=== PATIENT | female | born 1950 | race Caucasian/White ===

== ENCOUNTER 2019-07-10 00:41 | Observation (INO) | payer MEDICARE, OTHER ==
[~2019-07-10] VITALS: Ht 173 cm; Wt 110.5 kg
[2019-07-10] VITALS (11 sets, daily range): BP systolic 129–162; BP diastolic 72–111
[2019-07-10 00:57] LABS: HEMATOCRIT 41 % (35-52); HEMOGLOBIN 14.3 G/DL (11.5-16.0); MEAN CORPUSCULAR HEMOGLOBIN 31 PG (25-34); MEAN CORPUSCULAR VOLUME 88 FL (80-99); WHITE BLOOD COUNT 8.6 10^3/uL (4.3-11.0)
[2019-07-10 00:58] LABS: BASOPHILS % (AUTO) 0 % (0-10); EOSINOPHILS # (AUTO) 0.1 10^3/uL (0.0-0.3); EOSINOPHILS % (AUTO) 1 % (0-10); LYMPHOCYTES # (AUTO) 2.8 X 10^3 (1.0-4.0); LYMPHOCYTES % (AUTO) 33 % (12-44); MEAN CORPUSCULAR HGB CONC 35 G/DL (32-36); MEAN PLATELET VOLUME 9.8 FL (7.4-10.4); MONOCYTES # (AUTO) 0.6 X 10^3 (0.0-1.0); MONOCYTES % (AUTO) 6 % (0-12); NEUTROPHILS # (AUTO) 5.1 X 10^3 (1.8-7.8); NEUTROPHILS % (AUTO) 59 % (42-75); PLATELET COUNT 275 10^3/uL (130-400); RED CELL DISTRIBUTION WIDTH 12.8 % (10.0-14.5)
[2019-07-10] MEDS ORDERED: LEVO150T6 (01:09)
[2019-07-10] MEDS ORDERED: ALPR0.254 (01:09)
[2019-07-10] MEDS ORDERED: PRAV40TA2 (01:09)
[2019-07-10] MEDS ORDERED: OMEP20CA13 (01:09)
[2019-07-10] MEDS ORDERED: NABU500T (01:09)
[2019-07-10] MEDS ORDERED: HYDR-3812 (01:09)
[2019-07-10] MEDS ORDERED: METF-397 (01:09)
[2019-07-10] MEDS ORDERED: FLUO20CA25 (01:09)
[2019-07-10] MEDS ORDERED: LISI-552 (01:09)
[2019-07-10] MEDS ORDERED: HYDR12.5 (01:09)
[2019-07-10] MEDS ORDERED: METO-395 (01:09)
[2019-07-10] MEDS ORDERED: NITROGLYCERIN 0.4 MG SL TABS BTL 25'S SL PRN ×2 (01:15→04:00)
[2019-07-10 01:17] LABS: ALANINE AMINOTRANSFERASE 38 U/L (0-55); ALBUMIN 4.4 GM/DL (3.2-4.5); ALKALINE PHOSPHATASE 109 U/L (40-136); BILIRUBIN,TOTAL 0.4 MG/DL (0.1-1.0); BUN/CREATININE RATIO 22; CALCIUM 8.9 MG/DL (8.5-10.1); CARBON DIOXIDE 24 MMOL/L (21-32); CHLORIDE 98 MMOL/L (98-107); CREATININE SERUM 0.92 MG/DL (0.60-1.30); GFR ESTIMATED > 60; GLUCOSE 192 MG/DL (70-105); POTASSIUM 3.7 MMOL/L (3.6-5.0); SODIUM 138 MMOL/L (135-145); TOTAL PROTEIN 7.4 GM/DL (6.4-8.2)
--- NOTE | 2019-07-10 01:36 | ED Chest Pain ---
General Chief Complaint: Chest Pain Stated Complaint: CHEST PAIN Nursing Triage Note: pt states intermittent chest pain for 2 weeks, occasionally worse at times. substernal no radiation Nursing Sepsis Screen: No Definite Risk Source: patient, family Exam Limitations: no limitations History of Present Illness Date Seen by Provider: Jul 10, 2019 Time Seen by Provider: 01:00 Initial Comments Patient is a 69-year-old female with history of hypertension, dyslipidemia and diabetes who presents with written right-sided chest pain 2 weeks. Chest pain awoke patient from sleep 3 hours prior to ED arrival. Pain was initially described as sharp then has continued to burn and now radiates to right shoulder. Pain is rated as moderate. It does not reproduce with palpation, arm or neck movement. Patient denies nausea vomiting sweats. No abdominal pain. Previous cholecystectomy. Patient is a nonsmoker. 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 NTG SL BAND EDGER: No Associated Symptoms: denies symptoms Allergies and Home Medications Allergies Coded Allergies: No Allergy Information Available (Unverified , 07/10/19) pt states she is allergic to 1 medication but does not know the name Patient Home Medication List Home Medication List Reviewed: Yes Review of Systems Review of Systems Constitutional: see HPI EENTM: See HPI Respiratory: See HPI Cardiovascular: See HPI Gastrointestinal: See HPI Genitourinary: See HPI Musculoskeletal: see HPI Skin: see HPI Psychiatric/Neurological: See HPI Endocrine: See HPI Hematologic/Lymphatic: See HPI Past Vbfkhgf-Eeyjvn-Xxptid Hx Past Med/Social Hx: Reviewed Nursing Past Med/Soc Hx Patient Social History Alcohol Use: Denies Use Recreational Drug Use: No Smoking Status: Never a Smoker 2nd Hand Smoke Exposure: No Recent Foreign Travel: No Contact w/Someone Who Travel: No Recent Infectious Disease Expo: No Recent Hopitalizations: No Physical Abuse: No Sexual Abuse: No Mistreated: No Fear: No Seasonal Allergies Seasonal Allergies: No Past Medical History Surgeries: Yes Bladder Surgery, Gallbladder, Thyroidectomy, Tonsillectomy Respiratory: No Cardiac: Yes Hypertension Neurological: No Genitourinary: Yes Bladder Infection Gastrointestinal: No Musculoskeletal: No Endocrine: Yes Hypothyroidsim, Diabetes, Non-Insulin dep HEENT: No Cancer: Yes Thyroid Psychosocial: Yes Anxiety, Depression Integumentary: No Blood Disorders: No Adverse Reaction/Blood Tranf: No Physical Exam Vital Signs Vital Signs - First Documented 07/10/19 07/10/19 00:52 01:02 Temp 35.7 Pulse 78 Resp 17 B/P (MAP) 178/83 (114) Pulse Ox 95 O2 Delivery Room Air Capillary Refill : Less Than 3 Seconds Height, Weight, BMI Height: '" Weight: lbs. oz. kg; 37.00 BMI Method: General Appearance: No Apparent Distress, WD/WN HEENT: PERRL/EOMI, Normal ENT Inspection Neck: Non Tender, Supple Respiratory: Chest Non Tender, Lungs Clear, Normal Breath Sounds Cardiovascular: Regular Rate, Rhythm Gastrointestinal: Normal Bowel Sounds, Non Tender, Soft Extremity: Normal Capillary Refill, Normal Inspection, No Calf Tenderness Skin: Normal Color, Warm/Dry Focused Exam Sepsis Stage: Ruled Out Progress/Results/Core Measures Results/Orders Lab Results Laboratory Tests Test 07/10/19 00:50 Range/Units White Blood Count 8.6 4.3-11.0 10^3/uL Red Blood Count 4.67 4.35-5.85 10^6/uL Hemoglobin 14.3 11.5-16.0 G/DL Hematocrit 41 35-52 % Mean Corpuscular Volume 88 80-99 FL Mean Corpuscular Hemoglobin 31 25-34 PG Mean Corpuscular Hemoglobin Concent 35 32-36 G/DL Red Cell Distribution Width 12.8 10.0-14.5 % Platelet Count 275 130-400 10^3/uL Mean Platelet Volume 9.8 7.4-10.4 FL Neutrophils (%) (Auto) 59 42-75 % Lymphocytes (%) (Auto) 33 12-44 % Monocytes (%) (Auto) 6 0-12 % Eosinophils (%) (Auto) 1 0-10 % Basophils (%) (Auto) 0 0-10 % Neutrophils # (Auto) 5.1 1.8-7.8 X 10^3 Lymphocytes # (Auto) 2.8 1.0-4.0 X 10^3 Monocytes # (Auto) 0.6 0.0-1.0 X 10^3 Eosinophils # (Auto) 0.1 0.0-0.3 10^3/uL Basophils # (Auto) 0.0 0.0-0.1 10^3/uL Sodium Level 138 135-145 MMOL/L Potassium Level 3.7 3.6-5.0 MMOL/L Chloride Level 98 98-107 MMOL/L Carbon Dioxide Level 24 21-32 MMOL/L Anion Gap 16 H 5-14 MMOL/L Blood Urea Nitrogen 20 H 7-18 MG/DL Creatinine 0.92 0.60-1.30 MG/DL Estimat Glomerular Filtration Rate > 60 BUN/Creatinine Ratio 22 Glucose Level 192 H 70-105 MG/DL Calcium Level 8.9 8.5-10.1 MG/DL Corrected Calcium 8.6 8.5-10.1 MG/DL Total Bilirubin 0.4 0.1-1.0 MG/DL Aspartate Amino Transf (AST/SGOT) 28 5-34 U/L Alanine Aminotransferase (ALT/SGPT) 38 0-55 U/L Alkaline Phosphatase 109 40-136 U/L Troponin I < 0.30 <0.30 NG/ML Total Protein 7.4 6.4-8.2 GM/DL Albumin 4.4 3.2-4.5 GM/DL My Orders Orders - JEWEL HUNTER DO Cbc With Automated Diff (07/10/19 00:47) Comprehensive Metabolic Panel (07/10/19 00:47) Troponin I Fs (07/10/19 00:47) Chest 1 View Ap/Pa Only (07/10/19 00:47) Ekg Tracing (07/10/19 00:47) Nitroglycerin 0.4 Mg Btl 25's (Nitrostat (07/10/19 01:15) Medications Given in ED Current Medications Medications Dose Ordered Sig/Delfina Route Start Time Stop Time Status Last Admin Dose Admin Nitroglycerin 1 TAB Q 5 MIN X 3 NEEDED PRN SL 07/10/19 01:15 07/10/19 01:18 0.4 MG Vital Signs/I&O 07/10/19 07/10/19 00:52 01:02 Temp 35.7 Pulse 78 Resp 17 B/P (MAP) 178/83 (114) Pulse Ox 95 O2 Delivery Room Air Blood Pressure Mean: 114 Departure Communication (Admissions) Time/Spoke to Consulting Phy: 01:39 Dr. Cam EKG, lab, EKG and imaging reviewed. No acute findings. Chest pain resolved with touch posterior and 1. 325 mg of aspirin prior to ED arrival. Patient vital signs remained stable. Patient accepted to [facility] by Dr. Cam. Impression Primary Impression: Chest pain Disposition: ADMITTED INPATIENT Condition: Stable JEWEL HUNTER DO Jul 10, 2019 01:36
[2019-07-10 06:32] LABS: BASOPHILS % (AUTO) 0 % (0-10); EOSINOPHILS # (AUTO) 0.1 10^3/uL (0.0-0.3); EOSINOPHILS % (AUTO) 1 % (0-10); HEMATOCRIT 39 % (35-52); HEMOGLOBIN 13.2 G/DL (11.5-16.0); LYMPHOCYTES # (AUTO) 1.8 X 10^3 (1.0-4.0); LYMPHOCYTES % (AUTO) 25 % (12-44); MEAN CORPUSCULAR HEMOGLOBIN 30 PG (25-34); MEAN CORPUSCULAR HGB CONC 34 G/DL (32-36); MEAN CORPUSCULAR VOLUME 87 FL (80-99); MONOCYTES # (AUTO) 0.4 X 10^3 (0.0-1.0); MONOCYTES % (AUTO) 6 % (0-12); NEUTROPHILS # (AUTO) 4.6 X 10^3 (1.8-7.8); NEUTROPHILS % (AUTO) 68 % (42-75); PLATELET COUNT 240 10^3/uL (130-400); RED CELL DISTRIBUTION WIDTH 13.3 % (10.0-14.5); WHITE BLOOD COUNT 6.9 10^3/uL (4.3-11.0)
--- NOTE | 2019-07-10 07:33 | NUR ---
Dr Moser notified of consult by this RN.
--- NOTE | 2019-07-10 07:48 | NUR ---
PT TO ROOM 4020 VIA WC ACCOMPANIED BY STAFF. PERSONAL BELONGINGS WITH PT. THIS RN WILL ASSUME PT CARE AT THIS TIME.
[2019-07-10] MEDS: FAMOTIDINE 20MG/2ML IV (PEPCID) IVP SCH ×2 (08:05→21:41)
--- NOTE | 2019-07-10 08:08 | Diagnostic Imaging Report ---
EXAMINATION: Chest 1 view HISTORY: Chest pain FINDINGS: No comparison available. Heart size is accentuated by portable technique and is likely normal. There are surgical clips in the right axilla. No pleural effusion or pneumothorax. No edema or pneumonia. IMPRESSION: 1. Clear lungs. Dictated by: Dictated on workstation # [id number]
[2019-07-10] MEDS: ONDANSETRON 4 MG/2 ML (SDV) Z0FRAN IV PRN ×2 (09:13→16:47)
[2019-07-10] MEDS ORDERED: ALPRAZolam 0.25 MG (XANAX) TAB PO PRN (11:15)
[2019-07-10 11:52] LABS: BASOPHILS % (AUTO) 0 % (0-10); EOSINOPHILS # (AUTO) 0.1 10^3/uL (0.0-0.3); EOSINOPHILS % (AUTO) 1 % (0-10); HEMATOCRIT 37 % (35-52); HEMOGLOBIN 13.3 G/DL (11.5-16.0); LYMPHOCYTES # (AUTO) 1.6 X 10^3 (1.0-4.0); LYMPHOCYTES % (AUTO) 25 % (12-44); MEAN CORPUSCULAR HEMOGLOBIN 31 PG (25-34); MEAN CORPUSCULAR HGB CONC 36 G/DL (32-36); MEAN CORPUSCULAR VOLUME 87 FL (80-99); MEAN PLATELET VOLUME 9.7 FL (7.4-10.4); MONOCYTES # (AUTO) 0.4 X 10^3 (0.0-1.0); MONOCYTES % (AUTO) 6 % (0-12); NEUTROPHILS # (AUTO) 4.3 X 10^3 (1.8-7.8); NEUTROPHILS % (AUTO) 68 % (42-75); PLATELET COUNT 224 10^3/uL (130-400); RED CELL DISTRIBUTION WIDTH 13.2 % (10.0-14.5); WHITE BLOOD COUNT 6.3 10^3/uL (4.3-11.0)
[2019-07-10 12:08] LABS: ALANINE AMINOTRANSFERASE 39 U/L (0-55); ALKALINE PHOSPHATASE 85 U/L (40-136); BILIRUBIN,TOTAL 0.7 MG/DL (0.1-1.0); BUN/CREATININE RATIO 19; CALCIUM 8.7 MG/DL (8.5-10.1); CARBON DIOXIDE 26 MMOL/L (21-32); CHLORIDE 101 MMOL/L (98-107); CREATININE SERUM 0.96 MG/DL (0.60-1.30); GFR ESTIMATED 58; GLUCOSE 158 MG/DL (70-105); MAGNESIUM 1.4 MG/DL (1.6-2.4); SODIUM 138 MMOL/L (135-145); TOTAL PROTEIN 6.8 GM/DL (6.4-8.2)
--- NOTE | 2019-07-10 12:59 | History & Physical-Hospitalist ---
History of Present Illness HPI/Chief Complaint This is a 69-year-old white female who presents to the [facility] emergency room with complaints of right-sided chest pain for the last 2 weeks. She notes that the chest pain is not exertional nor she had more shortness of breath. She has not done anything to bring it on. It's not been associated with diaphoresis or nausea. She does note that eating seems to make it worse. Source: patient Exam Limitations: no limitations Date Seen 07/10/19 Time Seen by a Provider: 12:00 Attending Physician Sierra Cam MD PCP Mireya Talley MD Referring Physician Date of Admission Jul 10, 2019 at 01:49 Home Medications & Allergies Home Medications Reviewed patient Home Medication Reconciliation performed by pharmacy medication reconciliations classroom technology technician and/or nursing. Patients Allergies have been reviewed. 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) Alcohol Use: Denies Use Recreational Drug Use: No Smoking Status: Never a Smoker 2nd Hand Smoke Exposure: No Recent Foreign Travel: No Contact w/other who traveled: No Recent Hopitalizations: No Recent Infectious Disease Expo: No Seasonal Allergies Seasonal Allergies: No Past Medical History Surgeries: Bladder Surgery, Gallbladder, Thyroidectomy, Tonsillectomy Cardiac: Hypertension Genitourinary: Bladder Infection Endocrine: Hypothyroidsim, Diabetes, Non-Insulin dep Cancer: Thyroid Psychosocial: Anxiety, Depression History of Blood Disorders: No Adverse Reaction to Blood Sullivan: No Family History DVT/PE Review of Systems Constitutional: see HPI EENTM: no symptoms reported Respiratory: no symptoms reported Cardiovascular: chest pain (right-sided) Gastrointestinal: no symptoms reported Genitourinary: no symptoms reported Musculoskeletal: no symptoms reported Skin: no symptoms reported Psychiatric/Neurological: No Symptoms Reported Physical Exam Physical Exam Vital Signs Vital Signs - First Documented 07/10/19 07/10/19 00:52 01:02 Temp 35.7 Pulse 78 Resp 17 B/P (MAP) 178/83 (114) Pulse Ox 95 O2 Delivery Room Air Capillary Refill : Less Than 3 Seconds Height, Weight, BMI Height: '" Weight: lbs. oz. kg; 37.22 BMI Method: General Appearance: No Apparent Distress, WD/WN HEENT: Normal ENT Inspection Neck: Full Range of Motion, Non Tender, Supple Respiratory: Chest Non Tender, Lungs Clear, Normal Breath Sounds, No Accessory Muscle Use, No Respiratory Distress Cardiovascular: Regular Rate, Rhythm, No Edema, No Gallop, No JVD, No Murmur, Normal Peripheral Pulses Gastrointestinal: Normal Bowel Sounds, No Organomegaly, No Pulsatile Mass, Non Tender, Soft Rectal: Deferred Back: Normal Inspection Extremity: Normal Capillary Refill, Normal Inspection, Normal Range of Motion, Non Tender, No Calf Tenderness, No Pedal Edema Neurologic/Psychiatric: Alert, Oriented x3, No Motor/Sensory Deficits, Normal Mood/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 Assessment/Plan Admission Diagnosis Chest pain atypical but with multiple risk factors including diabetes hypertension and hyperlipidemia and family history Type II diabetes on oral medications History of hypertension History of dyslipidemia Hypothyroidism Plan to admit consult cardiology for further risk stratification and evaluation Admission Status: Observation Clinical Quality Measures AMI/AHF: ASA po Prior to arrival: Yes DVT/VTE Risk/Contraindication: Risk Factor Score Per Nursin RFS Level Per Nursing on Admit: 3=High Copy Copies To 1: [facility]SIERRA STEELE MD Jul 10, 2019 12:59
[2019-07-10] MEDS: MAGNESIUM 1 GM/100 ML IVPB 100 ML IV SCH (13:10)
--- NOTE | 2019-07-10 15:27 | Consultation-Cardiology ---
HPI-Cardiology Cardiology Consultation: Date of Consultation 07/10/19 Time Seen by a Provider: 14:40 Date of Admission Attending Physician Sierra Cam MD Admitting Physician Mireya Talley MD Consulting Physician KEVIN WONG MD, MA, FACP, FACC, FSCAI, CCDS Physician requesting consult: Dr Cam HPI: Chief Complaint: CC: Chest discomfort HPI 69 yo woman with 2 weeks of chest discomfort: R upper chest, sometimes radiating to L upper chest, waxing and waning, but not resolving completely. It is sharp, moderate in intensity, w/o aggravating or relieving factors, unassociated with other symptoms. Has chronic, mild to mod exertional shortness of breath. Denies fever or chills. Has chronic, mild, intermittent leg swelling, unchanged in the recent past. Denies palp or syncope Review of Systems-Cardiology Review of Systems Constitutional: malaise, tiredness; No weight loss, No weight gain Eyes: No vision change Ears/Nose/Throat: No ear discharge, No nasal drainage, No recent hearing loss Respiratory: As described under HPI Cardiovascular: As described under HPI Gastrointestinal: No diarrhea, No nausea, No vomiting Genitourinary: No dysuria, No hematuria, No urine frequency changes Musculoskeletal: back pain (chronic); No joint pain Skin: No rash Psychiatric/Neurological: No seizure, No focal weakness, No syncope Hematologic: No bleeding abnormalities MZB-Tnadia-Chvsjd Hx Patient Social History Marrital Status: 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 Family Medical History Family Medical History: Does not report fam h/o early CAD or SCD Allergies and Home Medications Allergies Coded Allergies: No Allergy Information Available (Unverified , 07/10/19) pt states she is allergic to 1 medication but does not know the name Patient Home Medication List Home Medication List Reviewed: Yes Physical Exam-Cardiology Physical Exam Vital Signs/I&O 07/10/19 07/10/19 07/10/19 07/10/19 03:29 03:30 03:45 04:00 Pulse 70 68 73 74 Resp 12 20 22 B/P (MAP) 135/72 (93) 146/84 (104) 146/78 (100) Pulse Ox 94 95 96 O2 Delivery Room Air Room Air Room Air 07/10/19 07/10/19 07/10/19 07/10/19 04:00 04:30 07:00 08:00 Temp 37.0 Pulse 72 78 75 Resp 20 18 B/P (MAP) 141/73 (95) 152/85 (107) Pulse Ox 94 93 O2 Delivery Room Air Room Air Room Air 07/10/19 07/10/19 07/10/19 07/10/19 08:09 08:58 12:00 12:00 Temp 36.9 Pulse 82 Resp 18 B/P (MAP) 152/82 (105) Pulse Ox 91 O2 Delivery Room Air Room Air Room Air Room Air 07/10/19 07/10/19 13:00 15:18 Pulse 87 O2 Delivery Room Air Capillary Refill : Less Than 3 Seconds Constitutional: AAO x 3, well-developed, well-nourished HEENT: EOMI, hearing is well preserved Neck: carotid pulses are 2 + bilaterally, with good upstrokes Respiratory: No accessory muscle use; other (Fair to good bilat air entry, a few coarse basal crackles) Cardiovascular: regular rate-rhythm, S1 and S2, systolic murmur (soft JENNIFER at card base) Gastrointestinal: No tender; soft; No guarding, No rebound; audible bowel sounds Extremities: swelling (mild, bilateral leg swelling); No clubbing, No cyanosis Neurologic/Psychiatric: oriented x 3, other (she moves all her limbs equally) Skin: No rash, No ulcerations Data Review Labs Laboratory Tests 07/10/19 00:50: White Blood Count 8.6, Red Blood Count 4.67, Hemoglobin 14.3, Hematocrit 41, Mean Corpuscular Volume 88, Mean Corpuscular Hemoglobin 31, Mean Corpuscular Hemoglobin Concent 35, Red Cell Distribution Width 12.8, Platelet Count 275, Mean Platelet Volume 9.8, Neutrophils (%) (Auto) 59, Lymphocytes (%) (Auto) 33, Monocytes (%) (Auto) 6, Eosinophils (%) (Auto) 1, Basophils (%) (Auto) 0, Neutrophils # (Auto) 5.1, Lymphocytes # (Auto) 2.8, Monocytes # (Auto) 0.6, Eosinophils # (Auto) 0.1, Basophils # (Auto) 0.0, Sodium Level 138, Potassium Level 3.7, Chloride Level 98, Carbon Dioxide Level 24, Anion Gap 16H, Blood Urea Nitrogen 20H, Creatinine 0.92, Estimat Glomerular Filtration Rate > 60, BUN/Creatinine Ratio 22, Glucose Level 192H, Calcium Level 8.9, Corrected Calcium 8.6, Total Bilirubin 0.4, Aspartate Amino Transf (AST/SGOT) 28, Alanine Aminotransferase (ALT/SGPT) 38, Alkaline Phosphatase 109, Troponin I < 0.30, Total Protein 7.4, Albumin 4.4 07/10/19 05:45: White Blood Count 6.9, Red Blood Count 4.44, Hemoglobin 13.2, Hematocrit 39, Mean Corpuscular Volume 87, Mean Corpuscular Hemoglobin 30, Mean Corpuscular Hemoglobin Concent 34, Red Cell Distribution Width 13.3, Platelet Count 240, Mean Platelet Volume 10.0, Neutrophils (%) (Auto) 68, Lymphocytes (%) (Auto) 25, Monocytes (%) (Auto) 6, Eosinophils (%) (Auto) 1, Basophils (%) (Auto) 0, Neutrophils # (Auto) 4.6, Lymphocytes # (Auto) 1.8, Monocytes # (Auto) 0.4, Eosinophils # (Auto) 0.1, Basophils # (Auto) 0.0, Troponin I < 0.028 07/10/19 11:40: White Blood Count 6.3, Red Blood Count 4.28L, Hemoglobin 13.3, Hematocrit 37, Mean Corpuscular Volume 87, Mean Corpuscular Hemoglobin 31, Mean Corpuscular Hemoglobin Concent 36, Red Cell Distribution Width 13.2, Platelet Count 224, Mean Platelet Volume 9.7, Neutrophils (%) (Auto) 68, Lymphocytes (%) (Auto) 25, Monocytes (%) (Auto) 6, Eosinophils (%) (Auto) 1, Basophils (%) (Auto) 0, Neutrophils # (Auto) 4.3, Lymphocytes # (Auto) 1.6, Monocytes # (Auto) 0.4, Eosinophils # (Auto) 0.1, Basophils # (Auto) 0.0, Sodium Level 138, Potassium Level 4.0, Chloride Level 101, Carbon Dioxide Level 26, Anion Gap 11, Blood Urea Nitrogen 18, Creatinine 0.96, Estimat Glomerular Filtration Rate 58, BUN/Creatinine Ratio 19, Glucose Level 158H, Calcium Level 8.7, Corrected Calcium 8.7, Total Bilirubin 0.7, Aspartate Amino Transf (AST/SGOT) 25, Alanine Aminotransferase (ALT/SGPT) 39, Alkaline Phosphatase 85, Troponin I < 0.028, Total Protein 6.8, Albumin 4.0, D-Dimer 0.38, Magnesium Level 1.4L, B-Type Na triuretic Peptide 70.4, Thyroid Stimulating Hormone (TSH) 2.01 Laboratory Tests 07/10/19 00:50 07/10/19 05:45 07/10/19 11:40 A/P-Cardiology Assessment/Admission Diagnosis Chest discomfort of undetermined etiology DM II Hypertension Obesity with BMI approx 37 H/o R breast CA treated with lumpectomy, chemo, and radiation in or around 2003 (according to the patient) Discussion and Recomendations * W/u for cardiac-related chest discomfort: echo and MPI * If cardiac w/u negative, consider non-cardiac causes, including recurrent breast CA. This is to be pursued by the Med Svce * Replenish Mg * Monitor labs Clinical Quality Measures AMI/AHF: ASA po Prior to arrival: Yes DVT/VTE Risk/Contraindication: Risk Factor Score Per Nursin RFS Level Per Nursing on Admit: 3=High KEVIN WONG MD FACP [facility] CCDS Jul 10, 2019 15:27
[2019-07-10] MEDS ORDERED: REGADENOSON 0.4 MG/5 ML SYR (LEXISCAN) IV ONE (15:45)
--- NOTE | 2019-07-10 18:03 | NUR ---
ICU NOTIFIED THIS RN THAT PT HAD POSSIBLE EPISODES OF A FLUTTER. DR WONG NOTIFIED NEW ORDERS RECEIVED.
[2019-07-10] MEDS ORDERED: ENOXAPARIN 100 MG/1 ML (LOVENOX) SYR SC SCH (18:15)
[2019-07-11 00:32] VITALS: BP 158/79
[2019-07-11 04:39] VITALS: BP 150/91
[2019-07-11 08:00] VITALS: BP 136/82
[2019-07-11] MEDS ORDERED: ENOXAPARIN 100 MG/1 ML (LOVENOX) SYR SC SCH (10:00)
[2019-07-11] MEDS ORDERED: CATHETER FLUSH 10 ML SYR IV PRN (11:15)
--- NOTE | 2019-07-11 11:23 | Discharge Summary ---
TABATHA JASSO [facility] 07/11/19 1123: Diagnosis/Chief Complaint Date of Admission Jul 10, 2019 at 01:49 Date of Discharge Discharge Date: Jul 11, 2019 Admission Diagnosis Chest pain atypical but with multiple risk factors including diabetes hypertension and hyperlipidemia and family history Type II diabetes on oral medications History of hypertension History of dyslipidemia Hypothyroidism Plan to admit consult cardiology for further risk stratification and evaluation Primary Care Mireya Talley MD Discharge Summary Discharge Physical Exam Allergies: Coded Allergies: No Allergy Information Available (Unverified , 07/10/19) pt states she is allergic to 1 medication but does not know the name Vitals & I&Os Vital Signs Date Time Temp Pulse Resp B/P (MAP) Pulse Ox O2 Delivery O2 Flow Rate FiO2 07/11/19 08:00 35.7 73 16 136/82 (100) 95 Room Air General Appearance: No Apparent Distress, WD/WN Respiratory: Chest Non Tender, Lungs Clear, Normal Breath Sounds, No Accessory Muscle Use, No Respiratory Distress Cardiovascular: Regular Rate, Rhythm, No Edema, No Gallop, No Murmur, Normal Peripheral Pulses Extremity: Normal Inspection, Normal Range of Motion, Non Tender, No Calf Tenderness Skin: Normal Color, Warm/Dry Neurologic/Psychiatric: Alert, Oriented x3, No Motor/Sensory Deficits, Normal Mood/Affect Hospital Course Pt arrived in [place] ER with complaints of right sided chest pain that had been happening for a couple weeks. It is described as sharp that does burnign burning and radiates to right shoulder. A cardiac work up was initiated and found to be normal. The pt was admitted to [facility] for observation, and she was given magnesium sulfate due to low Mg levels. The patient reported feeling better after the medications that were given and reported no remaining pain. Pt is to be discharged to home with instructions to follow up with Dr. Talley this week. Labs (last 24 hrs) Laboratory Tests 07/10/19 11:40: White Blood Count 6.3, Red Blood Count 4.28L, Hemoglobin 13.3, Hematocrit 37, Mean Corpuscular Volume 87, Mean Corpuscular Hemoglobin 31, Mean Corpuscular Hemoglobin Concent 36, Red Cell Distribution Width 13.2, Platelet Count 224, Mean Platelet Volume 9.7, Neutrophils (%) (Auto) 68, Lymphocytes (%) (Auto) 25, Monocytes (%) (Auto) 6, Eosinophils (%) (Auto) 1, Basophils (%) (Auto) 0, Neutrophils # (Auto) 4.3, Lymphocytes # (Auto) 1.6, Monocytes # (Auto) 0.4, Eosinophils # (Auto) 0.1, Basophils # (Auto) 0.0, D-Dimer 0.38, Sodium Level 138, Potassium Level 4.0, Chloride Level 101, Carbon Dioxide Level 26, Anion Gap 11, Blood Urea Nitrogen 18, Creatinine 0.96, Estimat Glomerular Filtration Rate 58, BUN/Creatinine Ratio 19, Glucose Level 158H, Calcium Level 8.7, Corrected Calcium 8.7, Magnesium Level 1.4L, Total Bilirubin 0.7, Aspartate Amino Transf (AST/SGOT) 25, Alanine Aminotransferase (ALT/SGPT) 39, Alkaline Phosphatase 85, Troponin I < 0.028, B-Type Natriuretic Peptide 70.4, Total Protein 6.8, Albumin 4.0, Thyroid Stimulating Hormone (TSH) 2.01 Patient resulted labs reviewed. Discharge Home Medications: Active Scripts Active Reported Metoprolol Succinate 100 Mg Tab.er.24h Alprazolam 0.25 Mg Tablet Lisinopril 20 Mg Tablet Metformin HCl 500 Mg Tablet Fluoxetine HCl 20 Mg Capsule Omeprazole 20 Mg Capsule.dr Hydrochlorothiazide 12.5 Mg Capsule Levothyroxine Sodium 150 Mcg Tablet Pravastatin Sodium 40 Mg Tablet Nabumetone 500 Mg Tablet Hydrocodone-Acetamin 5-325 mg (Hydrocodone/Acetaminophen) 1 Each Tablet Instructions to patient/family Please see electronic discharge instructions given to patient. Clinical Quality Measures AMI/AHF: ASA po Prior to arrival: Yes DVT/VTE Risk/Contraindication: Risk Factor Score Per Nursin RFS Level Per Nursing on Admit: 3=High ZOYA PINK DO 07/11/192027: Diagnosis/Chief Complaint Discharge Diagnosis (1) Chest pain Status: Acute Discharge Summary Discharge Physical Exam Allergies: Coded Allergies: No Allergy Information Available (Unverified , 07/10/19) pt states she is allergic to 1 medication but does not know the name General Appearance: No Apparent Distress, WD/WN Respiratory: Lungs Clear Cardiovascular: Regular Rate, Rhythm Neurologic/Psychiatric: Alert, Oriented x3, No Motor/Sensory Deficits, Normal Mood/Affect Hospital Course Was the Problem List Reviewed?: Yes Hospital Course: Pt doing well awaiting results of Lexiscan and echo. Appreciate cardiology consultation. Pt denies any chest pain since yesterday. at the bedside. This fall that she had last week was very unusual for her. Overall she did well through the hospital course and was deemed stable for DC with close follow up with her PCP. Discussion & Recommendations Discharge Planning: <30 minutes discharge planning Supervisory-Addendum Brief Verification & Attestation Participated in pt care: history, MDM, physical Personally performed: exam, history, MDM, supervision of care Care discussed with: Medical Student Procedures: n/a Results interpretation: Verified all documentation Verification and Attestation of Medical Student E/M Service A medical student performed and documented this service in my presence. I reviewed and verified all information documented by the medical student and made modifications to such information, when appropriate. I personally performed the physical exam and medical decision making. Zoya Pink, Jul 11, 2019,20:[address] [facility] Jul 11, 2019 11:23 ZOYA PINK DO Jul 11, 2019 20:28
[2019-07-11] MEDS ORDERED: REGADENOSON 0.4 MG/5 ML SYR (LEXISCAN) IV ONE (11:57)
[2019-07-11 12:00] VITALS: BP 129/76
[2019-07-11] MEDS: FAMOTIDINE 20MG/2ML IV (PEPCID) IVP SCH (15:25)
--- NOTE | 2019-07-11 16:22 | STRESS TEST ---
DATE OF SERVICE: 07/11/2019 RESTING AND POST REGADENOSON TECHNETIUM-99M TETROFOSMIN SPECT CT IMAGING ORDERING PHYSICIAN: Dr. Moser. ATTENDING PHYSICIAN: Dr. Cam. PRIMARY PHYSICIAN: Dr. Talley. CLINICAL DIAGNOSIS: Chest discomfort. Baseline images were carried out after injection of 10.32 mCi of technetium-99m Tetrofosmin. This was followed by 0.4 mg regadenoson and 29.8 mCi of technetium-99m Tetrofosmin for stress imaging. The electrocardiogram showed sinus rhythm at baseline. The electrocardiogram showed subtle nonspecific ST abnormality at baseline, which did not change significantly. The patient tolerated the procedure well. Review of images at rest and following stress does not indicate any significant perfusion defects consistent with significant myocardial ischemia or infarction. Gated images show normal global left ventricular systolic function. Left ventricular ejection fraction is calculated to be 66%. CONCLUSION: 1. No evidence of any significant myocardial ischemia or infarction on this study. 2. Normal regional wall motion. 3. Normal global left ventricular systolic function with a calculated ejection fraction of 66%. Job ID: [id number] DocumentID: [id number] Dictated Date: 07/11/2019 16:13:23 Completions Engineer Date: 07/11/2019 16:22:05 Dictated By: KEVIN MOSER MD, MA, FACP, FACC,
[2019-07-11 16:53] VITALS: BP 119/64
--- NOTE | 2019-07-11 18:05 | Progress Note - Cardiology ---
Cardiology SOAP Progress Note Subjective: No cp or palp or syncope or shortness of breath Wishes to go home Objective: I&O/Vital Signs 07/11/19 07/11/19 07/11/19 07/11/19 07:03 08:00 08:00 09:00 Temp 35.7 Pulse 69 73 Resp 16 B/P (MAP) 136/82 (100) Pulse Ox 95 O2 Delivery Room Air Room Air Room Air 07/11/19 07/11/19 07/11/19 12:00 12:55 16:53 Temp 37.1 36.5 Pulse 72 78 75 Resp 20 16 B/P (MAP) 129/76 (93) 119/64 (82) Pulse Ox 95 92 O2 Delivery Room Air Room Air 07/11/19 00:00 Intake Total 1040 ml Balance 1040 ml Constitutional: AAO x 3, well-developed, well-nourished Respiratory: No accessory muscle use; other (Fair to good bilat air entry, a few coarse basal crackles) Cardiovascular: regular rate-rhythm, S1 and S2, systolic murmur (soft JENNIFER at card base) Gastrointestional: No tender; soft; No guarding, No rebound; audible bowel sounds Extremities: swelling (mild, bilateral leg swelling); No clubbing, No cyanosis Neurologic/Psychiatric: oriented x 3, other (she moves all her limbs equally) Skin: No rash, No ulcerations Results/Procedures: Labs Laboratory Tests 07/10/19 00:50 07/10/19 05:45 07/10/19 11:40 A/P: Assessment: Chest discomfort, noncardiac, undetermined etiology MPI of 07/11/19: no ischemia or infarction, LVEF 66% DM II Hypertension Obesity with BMI approx 37 H/o R breast CA treated with lumpectomy, chemo, and radiation in or around 2003 (according to the patient) Plan: * We reviewed her MPI results with her * We have advised f/u with her pcp for w/u for non-cardiac causes of cp. She states she will comply * F/u at our office in two weeks Clinical Quality Measures AMI/AHF: ASA po Prior to arrival: Yes KEVIN WONG MD FACP [facility] CCDS Jul 11, 2019 18:05
--- NOTE | 2019-07-11 18:50 | NUR ---
JENNIFER BAZAN demonstrates understanding of discharge instructions and accurately returns instructions upon questioning. Copy of Post-Discharge Instructions and Medication Discharge Instructions given to patient. JENNIFER BAZAN is able to manage continuing needs after discharge. Patients belongings returned to patient and family. Skin dry and intact; no breakdown noted. Patient discharged from [facility] on 07/11/2019 at 1850 . JENNIFER BAZAN left floor via wheelchair, accompanied by family and staff.
== END 2019-07-11 18:50 | disposition home or self-care (01) ==
LOC: EDUNIT# 00:41 → ER FS 00:44 → INTOOBSV 01:49 → ICU 01:49 → 4TH 07:47
PROVIDERS: ADMIT Internal Medicine; ATTEND Internal Medicine
DX: R07.9 Chest pain, unspecified (principal); I10 Essential (primary) hypertension; E78.5 Hyperlipidemia, unspecified; E03.9 Hypothyroidism, unspecified; E66.9 Obesity, unspecified; E11.9 Type 2 diabetes mellitus without complications; F41.8 Other specified anxiety disorders; Z90.89 Acquired absence of other organs; Z68.37 Body mass index [BMI] 37.0-37.9, adult; Z79.891 Long term (current) use of opiate analgesic; Z79.899 Other long term (current) drug therapy; Z83.3 Family history of diabetes mellitus
CPT/HCPCS: 36415; 71045; 78452; 80053; 83036; 83735; 83880; 84443; 84484; 85025; 85379; 93005; 93017; 93306; G0378

== ENCOUNTER → 2020-04-27 | Outpatient (CLI) | payer MEDICARE, OTHER ==
[~2020-04-27] MED LIST: ACHD5005; ALPR0.254; FLUO20CA46; HYDR12.5; LEVO150T6; LISI-552; METF-397; MTP100TCR; NABU500T; OMEP20CA18; PRAV40TA2
[2020-04-27 09:59] LABS: CREATININE SERUM 1.03 MG/DL (0.60-1.30); POTASSIUM 4.4 MMOL/L (3.6-5.0)
[2020-04-27 10:00] LABS: ALBUMIN 4.2 GM/DL (3.2-4.5); BILIRUBIN,TOTAL 0.7 MG/DL (0.1-1.0); CALCIUM 8.8 MG/DL (8.5-10.1); TOTAL PROTEIN 7.1 GM/DL (6.4-8.2)
== END ==
LOC: LAB FS 08:18
PROVIDERS: ATTEND Family Medicine
DX: E78.5 Hyperlipidemia, unspecified (principal); E03.9 Hypothyroidism, unspecified
CPT/HCPCS: 36415; 80053; 80061; 84443

== ENCOUNTER 2020-09-20 16:53 | Emergency (ER) | payer MEDICARE, OTHER ==
[~2020-09-20 16:53] MED LIST changes: +ALPR.25T; -ALPR0.254; +NABU-88; -NABU500T
--- NOTE | 2020-09-20 17:23 | NUR ---
spoke with Marley at poison control. Recommended to watch for a couple of hours for GI symptoms and get baseline labs for liver function. May also give activated charcoal. Poison control will check back in a couple hours.
[2020-09-20] MEDS ORDERED: CHARCOAL/AQUEOUS 50 GM/240 ML BTL PO ONE (17:30)
--- NOTE | 2020-09-20 17:38 | ED General ---
General Chief Complaint: Overdose Stated Complaint: TOOK WRONG MEDICATION History of Present Illness Date Seen by Provider: Sep 20, 2020 Time Seen by Provider: 17:35 Initial Comments Patient presenting to the emergency department for evaluation of actually taking 15 of her pravastatin pills shortly prior to arrival. She says that she has her sort her pills until he put it in pill bottles instead of having is sorted out by day and he gave her the wrong bottle of pills to take and it was the rest of her pravastatin. She denies taking any other coingestions or drugs or alcohol. She says this was purely an accident. She denies having any symptoms at this time including no abdominal pain fevers chills nausea vomiting or confusion. She says she feels perfectly fine and has no complaints. She is in no obvious distress with normal vital signs. Allergies and Home Medications Allergies Coded Allergies: No Allergy Information Available (Unverified , 07/10/19) pt states she is allergic to 1 medication but does not know the name Patient Home Medication List Home Medication List Reviewed: Yes Review of Systems Review of Systems Constitutional: no symptoms reported EENTM: no symptoms reported Respiratory: no symptoms reported Cardiovascular: no symptoms reported Gastrointestinal: no symptoms reported Genitourinary: no symptoms reported Musculoskeletal: no symptoms reported Skin: no symptoms reported Psychiatric/Neurological: No Symptoms Reported All Other Systems Reviewed Negative Unless Noted: Yes Past Dhwhkiq-Lolaho-Dxwwjl Hx Patient Social History Alcohol Use: Denies Use Recreational Drug Use: No Smoking Status: Never a Smoker 2nd Hand Smoke Exposure: No Recent Foreign Travel: No Contact w/Someone Who Travel: No Recent Hopitalizations: No Seasonal Allergies Seasonal Allergies: No Past Medical History Surgeries: Yes Bladder Surgery, Gallbladder, Thyroidectomy, Tonsillectomy Respiratory: No Cardiac: Yes High Cholesterol, Hypertension Neurological: No Genitourinary: Yes Bladder Infection Gastrointestinal: No Musculoskeletal: No Endocrine: Yes Hypothyroidsim, Diabetes, Non-Insulin dep HEENT: No Cancer: Yes Breast, Thyroid What Type of Treatment Did You: Surgical Intervention Psychosocial: Yes Anxiety, Depression Integumentary: No Blood Disorders: No Adverse Reaction/Blood Tranf: No Family Medical History DVT/PE Physical Exam Vital Signs Vital Signs - First Documented 09/20/20 17:33 Temp 36.1 Pulse 89 Resp 16 B/P (MAP) 118/89 (99) Pulse Ox 97 Capillary Refill : Height, Weight, BMI Height: '" Weight: lbs. oz. kg; 37.22 BMI Method: General Appearance: No Apparent Distress, WD/WN HEENT: PERRL/EOMI Neck: Supple Respiratory: Lungs Clear, No Respiratory Distress Cardiovascular: Regular Rate, Rhythm Gastrointestinal: Non Tender, Soft Back: Normal Inspection Extremity: Normal Capillary Refill, No Pedal Edema Neurologic/Psychiatric: Alert, Oriented x3 Skin: Warm/Dry Progress/Results/Core Measures Suspected Sepsis SIRS Temperature: Pulse: Respiratory Rate: Laboratory Tests 09/20/20 17:45: White Blood Count 8.1 Blood Pressure / Mean: Laboratory Tests 09/20/20 17:45: Creatinine 1.13, Platelet Count 284, Total Bilirubin 0.6 Results/Orders Lab Results Laboratory Tests Test 09/20/20 17:45 Range/Units White Blood Count 8.1 4.3-11.0 10^3/uL Red Blood Count 4.68 4.35-5.85 10^6/uL Hemoglobin 14.3 11.5-16.0 G/DL Hematocrit 41 35-52 % Mean Corpuscular Volume 87 80-99 FL Mean Corpuscular Hemoglobin 31 25-34 PG Mean Corpuscular Hemoglobin Concent 35 32-36 G/DL Red Cell Distribution Width 13.3 10.0-14.5 % Platelet Count 284 130-400 10^3/uL Mean Platelet Volume 9.4 7.4-10.4 FL Immature Granulocyte % (Auto) 0 % Neutrophils (%) (Auto) 62 42-75 % Lymphocytes (%) (Auto) 28 12-44 % Monocytes (%) (Auto) 7 0-12 % Eosinophils (%) (Auto) 2 0-10 % Basophils (%) (Auto) 1 0-10 % Neutrophils # (Auto) 5.0 1.8-7.8 X 10^3 Lymphocytes # (Auto) 2.3 1.0-4.0 X 10^3 Monocytes # (Auto) 0.6 0.0-1.0 X 10^3 Eosinophils # (Auto) 0.1 0.0-0.3 10^3/uL Basophils # (Auto) 0.1 0.0-0.1 10^3/uL Immature Granulocyte # (Auto) 0.0 0.0-0.1 10^3/uL Sodium Level 137 135-145 MMOL/L Potassium Level 3.3 L 3.6-5.0 MMOL/L Chloride Level 98 98-107 MMOL/L Carbon Dioxide Level 22 21-32 MMOL/L Anion Gap 17 H 5-14 MMOL/L Blood Urea Nitrogen 21 H 7-18 MG/DL Creatinine 1.13 0.60-1.30 MG/DL Estimat Glomerular Filtration Rate 48 BUN/Creatinine Ratio 19 Glucose Level 239 H 70-105 MG/DL Calcium Level 9.2 8.5-10.1 MG/DL Corrected Calcium 8.8 8.5-10.1 MG/DL Total Bilirubin 0.6 0.1-1.0 MG/DL Aspartate Amino Transf (AST/SGOT) 31 5-34 U/L Alanine Aminotransferase (ALT/SGPT) 28 0-55 U/L Alkaline Phosphatase 102 40-136 U/L Total Protein 7.4 6.4-8.2 GM/DL Albumin 4.5 3.2-4.5 GM/DL My Orders Orders - AAMIR MCKEON DO Charcoal Activated Aqueous (Actidose Aqu (09/20/20 17:30) Cbc With Automated Diff (09/20/20 17:23) Comprehensive Metabolic Panel (09/20/20 17:23) Medications Given in ED Current Medications Medications Dose Ordered Sig/Delfina Route Start Time Stop Time Status Last Admin Dose Admin Charcoal 50 gm ONCE ONCE PO 09/20/20 17:30 09/20/20 17:31 DC 09/20/20 17:30 50 GM Vital Signs/I&O 09/20/20 17:33 Temp 36.1 Pulse 89 Resp 16 B/P (MAP) 118/89 (99) Pulse Ox 97 Capillary Refill : Progress Note : Progress Note Poison center was consulted and they said they usually do not send patients to the emergency room first and overdoses that since she was here they recommended watching her for 2 hours to ensure she does not develop any GI symptoms and getting baseline labs including liver function tests and that activated charcoal can be offered given she is here within an hour of her ingestion. Labs are normal and patient was observed for 2 hours and she says she feels perfectly fine and would like to go home. I told patient to hold her statin over the weekend and to see her primary care provider on Thursday as she would likely benefit from having her labs redrawn and they can write her for any pr escription of statin if she is stable at that time. I told her to come back to the ER sooner with worsening pain fevers vomiting or other general concerns. Patient aware and agreeable with plan and verbalized understanding of the above instructions. Departure Impression Primary Impression: Overdose Qualified Codes: T50.901A - Poisoning by unspecified drugs, medicaments and biological substances, accidental (unintentional), initial encounter Disposition: HOME, SELF-CARE Condition: Stable Departure-Patient Inst. Referrals: DAVID ALONSO MD (PCP/Family) Primary Care Physician Patient Instructions: Accidental Overdose (DC) AAMIR MCKEON DO Sep 20, 2020 17:38
[2020-09-20 18:00] LABS: HEMATOCRIT 41 % (35-52); HEMOGLOBIN 14.3 G/DL (11.5-16.0); MEAN CORPUSCULAR HEMOGLOBIN 31 PG (25-34); WHITE BLOOD COUNT 8.1 10^3/uL (4.3-11.0)
[2020-09-20 18:01] LABS: BASOPHILS # (AUTO) 0.1 10^3/uL (0.0-0.1); BASOPHILS % (AUTO) 1 % (0-10); EOSINOPHILS # (AUTO) 0.1 10^3/uL (0.0-0.3); EOSINOPHILS % (AUTO) 2 % (0-10); LYMPHOCYTES # (AUTO) 2.3 X 10^3 (1.0-4.0); LYMPHOCYTES % (AUTO) 28 % (12-44); MEAN CORPUSCULAR HGB CONC 35 G/DL (32-36); MEAN CORPUSCULAR VOLUME 87 FL (80-99); MEAN PLATELET VOLUME 9.4 FL (7.4-10.4); MONOCYTES # (AUTO) 0.6 X 10^3 (0.0-1.0); MONOCYTES % (AUTO) 7 % (0-12); NEUTROPHILS % (AUTO) 62 % (42-75); PLATELET COUNT 284 10^3/uL (130-400)
[2020-09-20 18:21] LABS: ALBUMIN 4.5 GM/DL (3.2-4.5); BILIRUBIN,TOTAL 0.6 MG/DL (0.1-1.0); CALCIUM 9.2 MG/DL (8.5-10.1); CREATININE SERUM 1.13 MG/DL (0.60-1.30); POTASSIUM 3.3 MMOL/L (3.6-5.0); TOTAL PROTEIN 7.4 GM/DL (6.4-8.2)
--- NOTE | 2020-09-20 18:59 | NUR ---
Updated Marley at poison control that patient remains asymptomatic and is discharging. Marley stated to have patient followup with pcp next week.
[2020-09-20 19:00] VITALS: BP 101/58
== END 2020-09-20 19:02 | disposition home or self-care (01) ==
LOC: EDUNIT# 16:53 → ER FS 16:55
DX: T46.6X1A Poisoning by antihyperlipidemic and antiarteriosclerotic drugs, accidental (unintentional), initial encounter (principal); Z85.3 Personal history of malignant neoplasm of breast; Z85.850 Personal history of malignant neoplasm of thyroid
CPT/HCPCS: 36415; 80053; 85025

== ENCOUNTER → 2020-09-25 | Outpatient (CLI) | payer MEDICARE, OTHER ==
[2020-09-25 16:07] LABS: CLARITY,URINE SL CLOUDY; COLOR,URINE YELLOW
[2020-09-25 16:10] LABS: GLUCOSE, URINE (UA) NEGATIVE (NEGATIVE); PH,URINE 5.5 (5-9); PROTEIN,URINE NEGATIVE (NEGATIVE)
[2020-09-25 16:11] LABS: BACTERIA,URINE LARGE /HPF; BILIRUBIN,URINE NEGATIVE (NEGATIVE); KETONES,URINE TRACE (NEGATIVE); LEUKOCYTE ESTERASE ,URINE 1+ (NEGATIVE); NITRITE,URINE POSITIVE (NEGATIVE); RBC,URINE 0-2 /HPF; WBC,URINE 25-50 /HPF
== END ==
LOC: LAB FS 15:51
PROVIDERS: ATTEND Family Medicine
DX: R39.89 Other symptoms and signs involving the genitourinary system (principal)
CPT/HCPCS: 81000; 87077; 87088; 87186

== ENCOUNTER → 2020-10-04 | Outpatient (CLI) | payer MEDICARE, OTHER ==
[2020-10-04 13:04] LABS: CREATININE SERUM 0.99 MG/DL (0.60-1.30); POTASSIUM 4.4 MMOL/L (3.6-5.0)
[2020-10-04 13:05] LABS: ALBUMIN 4.4 GM/DL (3.2-4.5); BILIRUBIN,TOTAL 0.5 MG/DL (0.1-1.0); CALCIUM 8.8 MG/DL (8.5-10.1); TOTAL PROTEIN 7.3 GM/DL (6.4-8.2)
== END ==
LOC: LAB FS 12:06
PROVIDERS: ATTEND Family Medicine
DX: T50.901A Poisoning by unspecified drugs, medicaments and biological substances, accidental (unintentional), initial encounter (principal)
CPT/HCPCS: 36415; 80053

== ENCOUNTER → 2020-10-26 | Outpatient (CLI) | payer MEDICARE, OTHER ==
[2020-10-26 09:20] LABS: CREATININE SERUM 1.02 MG/DL (0.60-1.30); POTASSIUM 4.1 MMOL/L (3.6-5.0)
[2020-10-26 09:21] LABS: ALBUMIN 4.3 GM/DL (3.2-4.5); BILIRUBIN,TOTAL 0.5 MG/DL (0.1-1.0); CALCIUM 8.7 MG/DL (8.5-10.1); TOTAL PROTEIN 7.1 GM/DL (6.4-8.2)
== END ==
LOC: LAB FS 08:30
PROVIDERS: ATTEND Family Medicine
DX: E11.9 Type 2 diabetes mellitus without complications (principal)
CPT/HCPCS: 36415; 80053; 80061; 83036

== ENCOUNTER → 2021-01-25 | Outpatient (CLI) | payer MEDICARE, OTHER ==
[~2021-01-25] MED LIST changes: -LISI-552; +LISI20TA26; -NABU-88; +NABU500T8
[2021-01-25 12:04] LABS: POTASSIUM 4.1 MMOL/L (3.6-5.0)
[2021-01-25 12:05] LABS: CALCIUM 8.4 MG/DL (8.5-10.1); CREATININE SERUM 0.95 MG/DL (0.60-1.30)
== END ==
LOC: LAB FS 08:27
PROVIDERS: ATTEND Family Medicine
DX: E11.9 Type 2 diabetes mellitus without complications (principal)
CPT/HCPCS: 36415; 80048; 83036

== ENCOUNTER 2021-05-07 22:34 | Emergency (ER) | payer MEDICARE, OTHER ==
[2021-05-07] MEDS ORDERED: morphine INJ 10 MG/ML 1ML (SYR OR VIAL) IVP STA (23:05)
[2021-05-07] MEDS ORDERED: KETOROLAC 30 MG/ML VIAL IVP ONE (23:15)
--- NOTE | 2021-05-07 23:26 | Diagnostic Imaging Report ---
Indication: Right hip pain 2 views of the right hip show no fracture, dislocation or other acute abnormalities. IMPRESSION: Negative right hip Dictated by: Dictated on workstation # [id number]
--- NOTE | 2021-05-07 23:27 | ED Lower Extremity ---
General Chief Complaint: Lower Extremity Stated Complaint: RT HIP PAIN Nursing Triage Note: Pt brought in by ems complaining of right hip pain. Pt states the pain has been there for several days and radiates down her right leg. Pt denies any injury Source: patient Exam Limitations: no limitations History of Present Illness Date Seen by Provider: May 07, 2021 Time Seen by Provider: 22:30 Initial Comments Patient with chronic right hip pain who presents with persistent right lateral hip pain radiating to the knee. Pain is moderate to severe and is still present for several days. Denies injury or fall. No motor weakness or loss of sensation. Ibuprofen prior to ED arrival with limited relief. No other symptoms or complaints. Onset: just prior to arrival Pain/Injury Location: right thigh Method of Injury: other Modifying Factors: Improves With Other Allergies and Home Medications Allergies Coded Allergies: No Allergy Information Available (Unverified , 07/10/19) pt states she is allergic to 1 medication but does not know the name Patient Home Medication List Home Medication List Reviewed: Yes Review of Systems Constitutional: see HPI EENTM: see HPI Respiratory: see HPI Cardiovascular: see HPI Gastrointestinal: see HPI Genitourinary: see HPI Musculoskeletal: see HPI Skin: see HPI Psychiatric/Neurological: See HPI All Other Systems Reviewed Negative Unless Noted: Yes Past Okbpqgu-Mgtphv-[id number] Hx Patient Social History Tobacco Use?: No Use of E-Cig and/or Vaping dev: No Substance use?: No Alcohol Use?: No Pt feels they are or have been: No Seasonal Allergies Seasonal Allergies: No Past Medical History Surgeries: Yes Bladder Surgery, Gallbladder, Thyroidectomy, Tonsillectomy Respiratory: No Cardiac: Yes High Cholesterol, Hypertension Neurological: No Genitourinary: Yes Bladder Infection Gastrointestinal: No Musculoskeletal: No Endocrine: Yes Hypothyroidsim, Diabetes, Non-Insulin dep HEENT: No Cancer: Yes Breast, Thyroid What Type of Treatment Did You: Surgical Intervention Psychosocial: Yes Anxiety, Depression Integumentary: No Blood Disorders: No Adverse Reaction/Blood Tranf: No Family Medical History DVT/PE Physical Exam Vital Signs Vital Signs - First Documented 05/07/21 22:38 Temp 36.5 Pulse 75 Resp 18 B/P (MAP) 155/60 (91) Pulse Ox 92 O2 Delivery Room Air Capillary Refill : Less Than 3 Seconds Height, Weight, BMI Height: '" Weight: lbs. oz. kg; 37.22 BMI Method: General Appearance: WD/WN, moderate distress HEENT: PERRL/EOMI, normal ENT inspection Cardiovascular: normal peripheral pulses Hips: right hip limited range of motion, right hip pain Neurologic/Tendon: normal tendon functions Neurologic/Psychiatric: alert, oriented x 3 Skin: normal color Progress/Results/Core Measures Results/Orders My Orders Orders - JEWEL HUNTER DO Ketorolac Injection (Toradol Injection) (05/07/21 23:15) Morphine Injection (Morphine Injection (05/07/21 23:05) Hip 2-3 View Right (05/07/21 23:06) Medications Given in ED Current Medications Medications Dose Ordered Sig/Delfina Route Start Time Stop Time Status Last Admin Dose Admin Ketorolac Tromethamine 30 mg ONCE ONCE IVP 05/07/21 23:15 05/07/21 23:16 DC 05/07/21 23:23 30 MG Vital Signs/I&O 05/07/21 22:38 Temp 36.5 Pulse 75 Resp 18 B/P (MAP) 155/60 (91) Pulse Ox 92 O2 Delivery Room Air Blood Pressure Mean: 91 Departure Communication (Admissions) Right hip x-ray: No fracture or dislocation. Pain addressed improved with treatment. Recommendations for outpatient follow-up with PCP consideration for orthopedic referral. Impression Primary Impression: Pain, joint, hip, right Disposition: 01 HOME, SELF-CARE Condition: Stable Departure-Patient Inst. Decision time for Depature: 23:30 Referrals: DAVID ALONSO MD (PCP/Family) Primary Care Physician Patient Instructions: Hip Pain Add. Discharge Instructions: You were evaluated in the emergency department for right hip pain. X-rays were performed and are nondiagnostic. Please take pain medication and anti- inflammatories and use walker.Follow-up with your PCP return to the ED if new or worsening symptoms All discharge instructions reviewed with patient and/or family. Voiced understanding. Scripts Hydrocodone/Acetaminophen (Hydrocodone-Acetamin 5-325 mg) 1 Each Tablet 1 TAB PO Q4H PRN for PAIN-MODERATE (5-7), #20 TAB Prov: JEWEL HUNTER DO 05/07/21 JEWEL HUNTER DO May 07, 2021 23:27
[2021-05-07] MEDS ORDERED: ACHD5005 PO (23:32)
[2021-05-07 23:48] VITALS: BP 155/60
--- OUTSIDE RECORDS SUMMARY | 2021-05-08 04:26 | XMS REPORT | Clinical Summary ---
Author Author [facility] Organization [facility] Address Unknown Phone Unavailable Care Team Providers Care Backrest Assembler Name Role Phone Outpatient, Radiologist Unavailable Unavailable Brandon Juarez MD Unavailable Mireya Talley MD PCP Carol Neumann RN Unavailable Unavailable Ovidio Bridges MD Unavailable Unavailable Magnus Escalante MD Unavailable [phone] Source Comments Some departments are not documenting in the electronic medical record. If you d o not see the information that you expected, contact Release of Information in [facility] [employer] Information Management department at [phone] for further assistan ce in locating additional records.[facility] Allergies Comments Active Allergy Reactions Severity Noted Date Iodinated Contrast Media ANAPHYLAXIS High 01/21 Medications End Date Status Medication Sig Dispensed Refills Start Date Active pravastatin (PRAVACHOL) Take 40 mg by 0 40 mg tablet mouth daily. Active lisinopril (PRINIVIL; Take 20 mg by 0 ZESTRIL) 20 mg tablet mouth twice daily. Active omeprazole DR(+) Take 20 mg by 0 (PRILOSEC) 20 mg capsule mouth daily. Active nabumetone (RELAFEN) 500 Take 500 mg 0 mg tablet by mouth daily. Active FLUoxetine (PROZAC) 20 mg Take 20 mg by 0 capsule mouth at bedtime daily. Active vitamins, multiple tablet Take 1 Tab by 0 mouth daily. Active hydrochlorothiazide Take 12.5 mg 0 (HYDRODIURIL) 12.5 mg tab by mouth tablet daily. Active furosemide (LASIX) 40 mg Take 40 mg by 0 tablet mouth daily. Active warfarin (COUMADIN) 4 mg Take 4 mg by 0 tablet mouth daily. Active metoprolol XL (TOPROL XL) Take 100 mg 0 100 mg tablet by mouth daily. Active oxyCODONE/acetaminophen Take 1-2 Tabs 50 Tab 0 (PERCOCET; ENDOCET; by mouth 6 ROXICET) 5/325 mg tablet every 6 hours as needed for Pain Active levothyroxine (SYNTHROID) Take 1 Tab by 90 Tab 3 150 mcg tablet mouth daily. 6 Active calcium carbonate Take 1 Tab by 90 Tab 1 (OS-SERGO) 1250 mg tablet mouth three 6 times daily. Active Problems No known active problems Resolved Problems Problem Noted Date Resolved Date Multinodular thyroid 02/07/2016 03/05/2016 Thyroid nodule 01/24/2016 03/05/2016 Surgical History Surgery Date Site/Laterality Comments COLONOSCOPY ~1999' HYSTERECTOMY 1973 CHOLECYSTECTOMY 2009 TONSILLECTOMY Childhood APPENDECTOMY 1986 THYROIDECTOMY 02/07/2016 N/A TOTAL THYROIDEC MATHIEU, INTRAOPERATIVE RECURRENT LARYNGEAL NERVE MONITORING, PARATHYROID AUTOTRANSPLANTATION performed by Brandon Sandoval MD at [facility] Medical History Medical History Date Comments Hypertension Thyroid nodule 01/24/2016 JCARLOS (obstructive sleep apnea) On home O2 3L at night for JCARLOS Hyperlipidemia A-fib (HCC) Breast cancer (HCC) 2003 Arthritis Knees Psychiatric illness depression Family History Medical History Relation Name Comments Hypertension Brother Cancer Mother CERVICAL Cancer Sister High Cholesterol Sister Relation Name Status Comments Brother Mother Sister Social History Date Tobacco Use Types Packs/Day Years Used Never Smoker Smokeless Tobacco: Never Used Comments Alcohol Use Standard Drinks/Week No 0 (1 standard drink = 0.6 o z pure alcohol) Sex Assigned at Date Recorded Not on file Last Filed Vital Signs Reading Time Taken Comments Vital Sign 134/79 02/26/2016 9:33 AM CDT Blood Pressure 78 02/26/2016 9:33 AM CDT Pulse 36.7 C (98.1 F) 2016 2:24 PM CDT Temperature 18 02/26/2016 9:33 AM CDT Respiratory Rate 100% 02/26/2016 9:33 AM CDT Oxygen Saturation - - Inhaled Oxygen Concentration 107.8 kg (237 lb 9.6 oz) 02/26/2016 9:33 AM CDT Weight 172.7 cm (5' 7.99") 02/26/2016 9:33 AM CDT Height 36.14 02/26/2016 9:33 AM CDT Body Mass Index Plan of Treatment Health Maintenance Due Date Last Done Comments MEDICARE ANNUAL WELLNESS 1950 VISIT DTAP/TDAP VACCINES (1 - 1969 Tdap) HEPATITIS C SCREENING 1969 PHYSICAL (COMPREHENSIVE) 1969 EXAM BREAST CANCER SCREENING 1991 COLORECTAL CANCER 2001 SCREENING SHINGLES RECOMBINANT 2001 VACCINE (1 of 2) OSTEOPOROSIS 02/09/2016 SCREENING/MONITORING PNEUMONIA (PPSV23) 02/09/2016 VACCINE (1 of 1 - PPSV23) INFLUENZA VACCINE 06/21/2021 Results Not on filefrom Last 3 Months Insurance Type Payer Benefit Subscriber ID Effective Phone Address Plan / Dates Group Medicare MEDICARE MEDICARE [id number] 2016-P PART A AND resent B Medicare CIGNA CIGNA [id number] 2015-P MEDICARE resent SUPPLEMENT [phone] Advance Directives 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 needed
== END 2021-05-07 23:49 | disposition home or self-care (01) ==
LOC: EDUNIT# 22:34 → ER FS 22:35
DX: M25.551 Pain in right hip (principal); I10 Essential (primary) hypertension; E11.9 Type 2 diabetes mellitus without complications
CPT/HCPCS: 73502

== ENCOUNTER 2021-05-09 10:59 | Emergency (ER) | payer MEDICARE, OTHER ==
[~2021-05-09 10:59] MED LIST changes: +ACHD5005 PO
--- NOTE | 2021-05-09 11:09 | ED Back Pain ---
General Chief Complaint: Back Problems Stated Complaint: RT HIP PAIN Source of Information: Patient, EMS History of Present Illness Date Seen by Provider: May 09, 2021 Time Seen by Provider: 11:00 Initial Comments 8-year-old female with past medical history of hypertension, hyperlipidemia, diabetes, thyroid disease, and chronic right hip/back pain coming in due to which she states is right hip pain. She states it has been ongoing since Thursday, is constant, and improves when she takes hydrocodone. She also is intermittently taking ibuprofen. The pain is slightly better than when she presented to the emergency department here the other day, but she states it still enough that it is difficult for her to ambulate at home and go to the restroom. Pain is worse with ambulation. She denies any numbness, focal weakness, falls, any other trauma, fever, midline back pain, IV drug use, chronic steroid use, chest pain, shortness of breath, abdominal pain, nausea, vomiting, diarrhea, dysuria, flank pain, or any other concerns. Allergies and Home Medications Allergies Coded Allergies: No Allergy Information Available (Unverified , 07/10/19) pt states she is allergic to 1 medication but does not know the name Home Medications Hydrocodone/Acetaminophen 1 Each Tablet, 1 TAB PO Q4H PRN for PAIN-MODERATE (5- 7) Prescribed by: JEWEL HUNTER on 05/07/21 0127 Patient Home Medication List Home Medication List Reviewed: Yes Review of Systems Constitutional: no symptoms reported; No fever EENTM: No blurred vision Respiratory: No cough, No short of breath Cardiovascular: No chest pain Gastrointestinal: No abdominal pain, No constipation, No diarrhea, No nausea, No vomiting Genitourinary: No discharge, No dysuria, No frequency Musculoskeletal: back pain, joint pain; No muscle weakness Skin: No rash Psychiatric/Neurological: No Symptoms Reported All Other Systems Reviewed Negative Unless Noted: Yes Past Ugkzoik-Apzpld-Vpvdhy Hx Patient Social History Tobacco Use?: No Seasonal Allergies Seasonal Allergies: No Past Medical History Surgeries: Yes Bladder Surgery, Gallbladder, Thyroidectomy, Tonsillectomy Respiratory: No Cardiac: Yes High Cholesterol, Hypertension Neurological: No Genitourinary: Yes Bladder Infection Gastrointestinal: No Musculoskeletal: No Endocrine: Yes Hypothyroidsim, Diabetes, Non-Insulin dep HEENT: No Cancer: Yes Breast, Thyroid What Type of Treatment Did You: Surgical Intervention Psychosocial: Yes Anxiety, Depression Integumentary: No Blood Disorders: No Adverse Reaction/Blood Tranf: No Family Medical History DVT/PE Physical Exam Vital Signs Vital Signs - First Documented 05/09/21 11:00 Temp 36.5 Pulse 74 Resp 16 B/P (MAP) 151/84 (106) Pulse Ox 94 O2 Delivery Room Air Capillary Refill : Height, Weight, BMI Height: '" Weight: lbs. oz. kg; 37.22 BMI Method: General Appearance: No Apparent Distress, WD/WN HEENT: PERRL/EOMI, Normal ENT Inspection, Pharynx Normal Neck: Full Range of Motion, Normal Inspection, Non Tender, Supple Cardiovascular: Regular Rate, Rhythm, No Edema, Normal Peripheral Pulses Respiratory: Chest Non Tender, Lungs Clear, Normal Breath Sounds, No Accessory Muscle Use, No Respiratory Distress Gastrointestinal: Normal Bowel Sounds, Non Tender, Soft; No Guarding Extremity: Normal Capillary Refill, Normal Inspection, Normal Range of Motion, No Calf Tenderness, No Pedal Edema, Other (Tender with palpation along her right buttocks, no midline spinal pain, minimal pain with logroll of the right leg, positive straight leg test, negative reverse straight leg test, 5 of 5 strength with plantarflexion, dorsiflexion, knee extension, hip extension) Neurologic/Psychiatric: Alert, Oriented x3, No Motor/Sensory Deficits, Normal Mood/Affect Skin: Normal Color, Warm/Dry Lymphatic: No Adenopathy Progress/Results/Core Measures Results/Orders My Orders Orders - CARO HOLMAN MD Lumbar Spine 2 Or 3 View (05/09/21 11:12) Acetaminophen Tablet (Tylenol Tablet) (05/09/21 11:12) Tramadol Tablet (Ultram Tablet) (05/09/21 11:12) Gabapentin Capsule/Tablet (Neurontin Cap (05/09/21 11:15) Medications Given in ED Current Medications Medications Dose Ordered Sig/Delfina Route Start Time Stop Time Status Last Admin Dose Admin Gabapentin 300 mg ONCE ONCE PO 05/09/21 11:15 05/09/21 11:16 DC 05/09/21 11:30 300 MG Vital Signs/I&O 05/09/21 05/09/21 11:00 11:31 Temp 36.5 36.5 Pulse 74 Resp 16 B/P (MAP) 151/84 (106) Pulse Ox 94 O2 Delivery Room Air Progress Progress Note : Progress Note 71-year-old female with above history coming in due to what she states is more right hip pain. ABCs were intact and vitals were stable on presentation although she is mildly hypertensive while in pain. Physical exam consistent with some hip pathology, but with a positive straight leg test I am also concerned for low back pain, more of a lumbar go picture. This has been an insidious in onset pain and I have a very low suspicion for a ruptured AAA. She has normal cranial sensation and no bowel or bladder issues making cauda equina very unlikely. No fevers or history such as IV drug use that would make spinal epidural abscess very unlikely. No flank pain or hematuria making kidney stone unlikely. No history of trauma, falls, or chronic steroid use making fracture unlikely. She has no other red flags, has normal sensation and strength on my exam. Lumbar x-ray ordered and interpreted by me showing arthritis specifically L4-L5. 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 I believe her symptoms are likely a combination of pain related to her lower back as well as her right hip. She was given Tylenol here, gabapentin for the radicular symptoms going down her right leg, and tramadol. She does have follow-up within the next coming days. I believe she is stable for discharge. She was sent home with strict return precautions. Diagnostic Imaging Diagonstic Imaging: Xray Plain Films/CT/US/NM/MRI: other (lumbar) Comments [facility]. [place], [place] NAME: JENNIFER BAZAN [facility] REC#: [id number] PT STATUS: REG ER : 1950 PHYSICIAN: CARO HOLMAN MD ADMIT DATE: 05/09/21/ER FS Draft Date of Exam:05/09/21 LUMBAR SPINE 2 OR 3 VIEW EXAMINATION: Lumbar spine radiographs, 3 views. COMPARISON: None. HISTORY: 71-year-old female, low back pain. FINDINGS: There are 5 lumbar-type vertebral bodies. There is grade 1 anterolisthesis of L4 on L5. There are multilevel mild disc degenerative changes of the thoracolumbar spine. There is mild disc height loss at L4-L5 and L5-S1. There are mild bilateral facet degenerative changes at L4-L5. The sacroiliac joints are unremarkable. There are right upper quadrant surgical clips likely reflecting prior cholecystectomy. There is no identified compression deformity or other fracture. There are atherosclerotic calcifications. IMPRESSION: 1. Multilevel mild disc degenerative changes of the lumbar spine with mild bilateral facet degenerative changes at L4-L5. 2. Grade 1 anterolisthesis of L4 on L5. Dictated on workstation # [id number] Dict: 05/09/21 1136 Trans: 05/09/21 1140 [facility] [id number] Interpreted by: RAYMUNDO INGRAM MD Electronically signed by: Departure Impression Primary Impression: Low back pain Qualified Codes: M54.41 - Lumbago with sciatica, right side; G89.29 - Other chronic pain Additional Impression: Pain, joint, hip, right Disposition: 01 HOME, SELF-CARE Condition: Stable Departure-Patient Inst. Referrals: DAVID ALONSO MD (PCP/Family) Primary Care Physician Patient Instructions: Low Back Pain in Adults, Hip Pain ED Add. Discharge Instructions: You were seen in the emergency department for what you state is right hip pain. I do believe a portion of this pain is coming from your hip, but I believe another portion is actually coming from your back. We gave you a medication that helps with nerve pain. Continue to stretch, and move around as tolerated at home. People that are walking around at home more and trying to live a normal life tend to get out of pain faster. Take Tylenol 1000 mg every 6 hours for pain. You can take flexeril at night time to help with pain when you need to sleep. Gabapentin will be for the nerve pain. You can also trial an over the counter lidocaine patch called [place] (ask a pharmacist where to find it). Please follow-up with your primary care doctor this week, and if you continue to have pain more than 2 weeks I would schedule an appointment with an orthopedic physician for potential injections or other modalities such as physical therapy. Come back to the emergency department if you have any issues with bowel or bladder such as you cannot feel that you are going, any fever, weakness that is in one leg more than the other that is not related to pain, numbness, or any other concerns. All discharge instructions reviewed with patient and/or family. Voiced understanding. Scripts Tramadol HCl (Tramadol HCl) 50 Mg Tablet 50 MG PO Q8H PRN for PAIN for 3 Days, #9 TAB 0 Refills Prov: CARO HOLMAN MD 05/09/21 Gabapentin (Gabapentin) 100 Mg Capsule 100 MG PO Q8H for Neuropathic pain for 14 Days, #42 CAP 0 Refills Prov: CARO HOLMAN MD 05/09/21 Cyclobenzaprine HCl (Cyclobenzaprine HCl) 10 Mg Tablet 10 MG PO HS PRN for SPASMS for 7 Days, #7 TAB 0 Refills Prov: CARO HOLMAN MD 05/09/21 CARO HOLMAN MD May 09, 2021 11:09
[2021-05-09] MEDS ORDERED: ACETAMINOPHEN 500 MG TAB (TYLENOL) PO STA (11:12)
[2021-05-09] MEDS ORDERED: GABAPENTIN 100 MG (NEURONTIN) CAP PO ONE (11:15)
--- NOTE | 2021-05-09 11:40 | Diagnostic Imaging Report ---
EXAMINATION: Lumbar spine radiographs, 3 views. COMPARISON: None. HISTORY: 71-year-old female, low back pain. FINDINGS: There are 5 lumbar-type vertebral bodies. There is grade 1 anterolisthesis of L4 on L5. There are multilevel mild disc degenerative changes of the thoracolumbar spine. There is mild disc height loss at L4-L5 and L5-S1. There are mild bilateral facet degenerative changes at L4-L5. The sacroiliac joints are unremarkable. There are right upper quadrant surgical clips likely reflecting prior cholecystectomy. There is no identified compression deformity or other fracture. There are atherosclerotic calcifications. IMPRESSION: 1. Multilevel mild disc degenerative changes of the lumbar spine with mild bilateral facet degenerative changes at L4-L5. 2. Grade 1 anterolisthesis of L4 on L5. Dictated by: Dictated on workstation # [id number]
[2021-05-09] MEDS ORDERED: CYCL10TA9 PO (12:18)
[2021-05-09] MEDS ORDERED: TRM50T PO (12:18)
[2021-05-09] MEDS ORDERED: GABA-486 PO (12:18)
[2021-05-09 12:27] VITALS: BP 155/84
== END 2021-05-09 12:27 | disposition home or self-care (01) ==
LOC: EDUNIT# 10:59 → ER FS 11:00
DX: G89.29 Other chronic pain (principal); M54.5 Low back pain; M25.551 Pain in right hip; I10 Essential (primary) hypertension; E11.9 Type 2 diabetes mellitus without complications; Z79.899 Other long term (current) drug therapy
CPT/HCPCS: 72100

== ENCOUNTER 2021-05-17 16:41 | Emergency (ER) | payer MEDICARE, OTHER ==
[~2021-05-17] VITALS: Ht 172 cm; Wt 108.0 kg
[~2021-05-17 16:41] MED LIST changes: +CYCL10TA9 PO; +GABA-486 PO; +TRM50T PO
--- NOTE | 2021-05-17 16:56 | ED General ---
General Stated Complaint: BACK PAIN Source of Information: Patient Exam Limitations: No Limitations History of Present Illness Date Seen by Provider: May 17, 2021 Time Seen by Provider: 16:53 Initial Comments To ER by [facility] from home with reports of back pain. This is been ongoing for 2 weeks without preceding trauma. This is mostly in the right buttock. She is left side-lying with knees and hips flexed as a position of comfort. The pain radiates down the right leg. No fevers or chills no loss of bowel or bladder control no loss of sensation of her genitals. She is been seen twice in the emergency room at [place] with plain films done. She has had opiates muscle relaxers and anti-inflammatories called in. States she is allergic to IV contrast and dexamethasone stating that it "makes her crazy". She does have a history of breast cancer on the right in 2003. She had an appointment with Dr. GALLAGHER today but missed it because she was in too much pain. Timing/Duration: Other (2 weeks ) Severity: Moderate Associated Systoms: Denies Symptoms Allergies and Home Medications Allergies Coded Allergies: dexamethasone (Verified Allergy, Unknown, 05/17/21) Uncoded Allergies: CONTTRAST DYE (Allergy, Unknown, 05/17/21) Home Medications Cyclobenzaprine HCl 10 Mg Tablet, 10 MG PO HS PRN for SPASMS Prescribed by: CARO HOLMAN on 05/09/21 1218 Gabapentin 100 Mg Capsule, 100 MG PO Q8H Prescribed by: CARO HOLMAN on 05/09/21 1218 Hydrocodone/Acetaminophen 1 Each Tablet, 1 TAB PO Q4H PRN for PAIN-MODERATE (5- 7) Prescribed by: JEWEL HUNTER on 05/07/21 2332 Hydrocodone/Acetaminophen 1 Each Tablet, 1 EACH PO Q6H PRN for PAIN-MODERATE (5- 7) Prescribed by: GAGE GONZALES on 05/17/21 1857 Tramadol HCl 50 Mg Tablet, 50 MG PO Q8H PRN for PAIN Prescribed by: CARO HOLMAN on 05/09/21 1219 Patient Home Medication List Home Medication List Reviewed: Yes Review of Systems Review of Systems Constitutional: see HPI EENTM: see HPI Respiratory: no symptoms reported Cardiovascular: no symptoms reported Genitourinary: no symptoms reported Musculoskeletal: see HPI, back pain Skin: no symptoms reported Psychiatric/Neurological: No Symptoms Reported Hematologic/Lymphatic: No Symptoms Reported Past Nhqxqgu-Phhfad-Grvnda Hx Seasonal Allergies Seasonal Allergies: No Past Medical History Surgeries: Yes Bladder Surgery, Gallbladder, Thyroidectomy, Tonsillectomy Respiratory: No Cardiac: Yes High Cholesterol, Hypertension Neurological: No Genitourinary: Yes Bladder Infection Gastrointestinal: No Musculoskeletal: No Endocrine: Yes Hypothyroidsim, Diabetes, Non-Insulin dep HEENT: No Cancer: Yes Breast, Thyroid What Type of Treatment Did You: Surgical Intervention Psychosocial: Yes Anxiety, Depression Integumentary: No Blood Disorders: No Adverse Reaction/Blood Tranf: No Family Medical History DVT/PE Physical Exam Vital Signs Vital Signs - First Documented 05/17/21 17:00 Temp 36.7 Pulse 86 Resp 16 B/P (MAP) 175/97 (123) Pulse Ox 96 O2 Delivery Room Air Capillary Refill : Height, Weight, BMI Height: '" Weight: lbs. oz. kg; 37.22 BMI Method: General Appearance: No Apparent Distress, WD/WN, Other (Alert and oriented no distress) Eyes: Bilateral Eye Normal Inspection Neck: Full Range of Motion, Normal Inspection Respiratory: No Accessory Muscle Use, No Respiratory Distress Cardiovascular: Regular Rate, Rhythm, Normal Peripheral Pulses Gastrointestinal: Normal Bowel Sounds, Non Tender, Soft Back: Normal Inspection, Other (Right buttock at the site of pain is normal in appearance without erythema or ecchymosis) Neurologic/Psychiatric: Alert, Oriented x3 Skin: Normal Color, Warm/Dry Progress/Results/Core Measures Suspected Sepsis SIRS Temperature: Pulse: Respiratory Rate: Laboratory Tests 05/17/21 18:18: White Blood Count 5.9 Blood Pressure / Mean: Laboratory Tests 05/17/21 18:18: Creatinine 0.96, Platelet Count 231, Total Bilirubin 0.8 Results/Orders Lab Results Laboratory Tests Test 05/17/21 18:18 Range/Units White Blood Count 5.9 4.3-11.0 10^3/uL Red Blood Count 4.60 3.80-5.11 10^6/uL Hemoglobin 14.3 11.5-16.0 g/dL Hematocrit 40 35-52 % Mean Corpuscular Volume 87 80-99 fL Mean Corpuscular Hemoglobin 31 25-34 pg Mean Corpuscular Hemoglobin Concent 36 32-36 g/dL Red Cell Distribution Width 12.5 10.0-14.5 % Platelet Count 231 130-400 10^3/uL Mean Platelet Volume 9.3 9.0-12.2 fL Immature Granulocyte % (Auto) 1 % Neutrophils (%) (Auto) 61 42-75 % Lymphocytes (%) (Auto) 29 12-44 % Monocytes (%) (Auto) 7 0-12 % Eosinophils (%) (Auto) 2 0-10 % Basophils (%) (Auto) 1 0-10 % Neutrophils # (Auto) 3.6 1.8-7.8 10^3/uL Lymphocytes # (Auto) 1.7 1.0-4.0 10^3/uL Monocytes # (Auto) 0.4 0.0-1.0 10^3/uL Eosinophils # (Auto) 0.1 0.0-0.3 10^3/uL Basophils # (Auto) 0.1 0.0-0.1 10^3/uL Immature Granulocyte # (Auto) 0.0 0.0-0.1 10^3/uL Sodium Level 138 135-145 MMOL/L Potassium Level 3.4 L 3.6-5.0 MMOL/L Chloride Level 101 98-107 MMOL/L Carbon Dioxide Level 24 21-32 MMOL/L Anion Gap 13 5-14 MMOL/L Blood Urea Nitrogen 20 H 7-18 MG/DL Creatinine 0.96 0.60-1.30 MG/DL Estimat Glomerular Filtration Rate 57 BUN/Creatinine Ratio 21 Glucose Level 145 H 70-105 MG/DL Calcium Level 9.2 8.5-10.1 MG/DL Corrected Calcium 9.2 8.5-10.1 MG/DL Total Bilirubin 0.8 0.1-1.0 MG/DL Aspartate Amino Transf (AST/SGOT) 24 5-34 U/L Alanine Aminotransferase (ALT/SGPT) 36 0-55 U/L Alkaline Phosphatase 82 40-136 U/L Total Protein 7.0 6.4-8.2 GM/DL Albumin 4.0 3.2-4.5 GM/DL My Orders Orders - GAGE GONZALES MANAGER PERIOPERATIVE Ketorolac Injection (Toradol Injection) (05/17/21 17:00) Cbc With Automated Diff (05/17/21 16:50) Comprehensive Metabolic Panel (05/17/21 16:50) Ct Lumbar Spine Wo (05/17/21 16:51) Ct Pelvis Wo (05/17/21 16:51) Hydrocodone/Apap 7.5/325 Tab (Lortab 7. (05/17/21 18:45) Medications Given in ED Current Medications Medications Dose Ordered Sig/Delfina Route Start Time Stop Time Status Last Admin Dose Admin Acetaminophen/ Hydrocodone Bitart 1 ea ONCE ONCE PO 05/17/21 18:45 05/17/21 18:46 DC 05/17/21 18:47 1 EA Ketorolac Tromethamine 60 mg ONCE ONCE IM 05/17/21 17:00 05/17/21 17:01 DC 05/17/21 18:10 60 MG Vital Signs/I&O 05/17/21 17:00 Temp 36.7 Pulse 86 Resp 16 B/P (MAP) 175/97 (123) Pulse Ox 96 O2 Delivery Room Air Capillary Refill : Diagnostic Imaging Diagonstic Imaging: CT Comments NAME: JENNIFER BAZAN [facility] REC#: [id number] PT STATUS: REG ER : 1950 PHYSICIAN: GAGE GONZALES APRN ADMIT DATE: 05/17/21/ER Draft Date of Exam:05/17/21 CT PELVIS WO PROCEDURE: CT pelvis without contrast. TECHNIQUE: Multiple contiguous axial images were obtained through the pelvis without the use of intravenous contrast. Sagittal and coronal reformations were performed. Auto Exposure Controls were utilized during the CT exam to meet ALARA standards for radiation dose reduction. INDICATION: Low back pain and right hip pain. No known trauma. COMPARISON: 05/07/2021. FINDINGS: No acute fracture or dislocation is seen in the pelvis and bilateral hips. Chronic deformity of the lower sacrum and coccyx is noted. Alignment of the bilateral femoral acetabular joints is anatomic. Mild degenerative changes are present in the hips with marginal osteophytes and joint space narrowing. No joint effusion is present. No suspicious focal osseous lesion is seen. The bilateral SI joints demonstrate normal alignment. The pubic symphysis is intact. The surrounding soft tissues of the pelvis are unremarkable. The included pelvis demonstrates diverticulosis of the descending and sigmoid colon without evidence of acute diverticulitis. IMPRESSION: No acute fracture or dislocation in the pelvis and bilateral hips. Dictated on workstation # [id number] Dict: 05/17/211750 Trans: 05/17/211829 [facility] [id number] Interpreted by: JACI ALVARADO DO Electronically signed by: NAME: JENNIFER BAZAN [facility] REC#: [id number] PT STATUS: REG ER : 1950 PHYSICIAN: GAGE GONZALES APRN ADMIT DATE: 05/17/21/ER Draft Date of Exam:05/17/21 CT LUMBAR SPINE WO PROCEDURE: CT lumbar spine without contrast. TECHNIQUE: Multiple contiguous axial images were obtained through the lumbar spine without the use of intravenous contrast. Sagittal and coronal reformations were then performed. Auto Exposure Controls were utilized during the CT exam to meet ALARA standards for radiation dose reduction. INDICATION: Low back pain. No known trauma. COMPARISON: 05/09/2021. FINDINGS: No acute fracture or dislocation is seen in the lumbar spine. There is grade 1 anterolisthesis of L4 on L5. Endplate sclerotic changes are present at the L5-S1 level. No suspicious focal osseous lesion is seen. No evidence of acute spinal canal stenosis. No high density material is seen within the spinal canal. Degenerative changes are seen in the lumbar spine with disc bulges, facet hypertrophy and buckling of the ligamentum flavum. These are greatest at the L4-L5 and L5-S1 levels with severe spinal canal stenosis at these levels. There is also moderate bilateral foraminal stenosis at the L4-L5 level and moderate right and severe left foraminal stenosis at L5-S1. The soft tissues of the lumbar spine are unremarkable. IMPRESSION: 1. No acute fracture or dislocation in the lumbar spine. 2. Advanced degenerative changes at the L4-L5 and L5-S1 levels. 3. Grade 1 anterolisthesis of L4 on L5. 4. Sclerotic endplate changes at the L5-S1 level. Dictated on workstation # [id number] Dict: 05/17/[id number] Trans: 05/17/211830 [facility] [id number] Interpreted by: JACI ALVARADO DO Electronically signed by: Departure Communication (Admissions) Remains hemodynamically stable. CT images are unremarkable. I will switch her to hydrocodone because she states that worked initially for her pain. I will write for an outpatient MRI though I did discuss with her that her insurance may require prior authorization which cannot be done from the ER. He does have an a ppointment with Dr. GALLAGHER on the seventh. She was unable to make that appointment today due to the pain Impression Primary Impression: Low back pain Disposition: 01 HOME, SELF-CARE Condition: Stable Departure-Patient Inst. Decision time for Depature: 18:54 Referrals: DAVID ALONSO MD (PCP/Family) Primary Care Physician Patient Instructions: Low Back Pain (DC) Add. Discharge Instructions: 1. Thursday morning call the scheduling department in the top left corner of the MRI order to schedule the MRI, just know that insurance may require a prior authorization which cannot be done from ER. Do not take the tramadol with the hydrocodone. Take the hydrocodone in place of the tramadol. Scripts Hydrocodone/Acetaminophen (Hydrocodone-Acetamin 7.5-325) 1 Each Tablet 1 EACH PO Q6H PRN for PAIN-MODERATE (5-7), #14 TAB Prov: GAGE GONZALES APRN 05/17/21 GAGE GONZALES APRN May 17, 2021 16:56
[2021-05-17] MEDS ORDERED: KETOROLAC 60 MG/2 ML VIAL IM ONE (17:00)
[2021-05-17 18:25] LABS: BASOPHILS # (AUTO) 0.1 10^3/uL (0.0-0.1); BASOPHILS % (AUTO) 1 % (0-10); EOSINOPHILS # (AUTO) 0.1 10^3/uL (0.0-0.3); EOSINOPHILS % (AUTO) 2 % (0-10); HEMATOCRIT 40 % (35-52); HEMOGLOBIN 14.3 g/dL (11.5-16.0); LYMPHOCYTES # (AUTO) 1.7 10^3/uL (1.0-4.0); LYMPHOCYTES % (AUTO) 29 % (12-44); MEAN CORPUSCULAR HEMOGLOBIN 31 pg (25-34); MEAN CORPUSCULAR HGB CONC 36 g/dL (32-36); MEAN CORPUSCULAR VOLUME 87 fL (80-99); MEAN PLATELET VOLUME 9.3 fL (9.0-12.2); MONOCYTES # (AUTO) 0.4 10^3/uL (0.0-1.0); MONOCYTES % (AUTO) 7 % (0-12); NEUTROPHILS # (AUTO) 3.6 10^3/uL (1.8-7.8); NEUTROPHILS % (AUTO) 61 % (42-75); PLATELET COUNT 231 10^3/uL (130-400); WHITE BLOOD COUNT 5.9 10^3/uL (4.3-11.0)
--- NOTE | 2021-05-17 18:30 | Diagnostic Imaging Report ---
PROCEDURE: CT pelvis without contrast. TECHNIQUE: Multiple contiguous axial images were obtained through the pelvis without the use of intravenous contrast. Sagittal and coronal reformations were performed. Auto Exposure Controls were utilized during the CT exam to meet ALARA standards for radiation dose reduction. INDICATION: Low back pain and right hip pain. No known trauma. COMPARISON: 05/07/2021. FINDINGS: No acute fracture or dislocation is seen in the pelvis and bilateral hips. Chronic deformity of the lower sacrum and coccyx is noted. Alignment of the bilateral femoral acetabular joints is anatomic. Mild degenerative changes are present in the hips with marginal osteophytes and joint space narrowing. No joint effusion is present. No suspicious focal osseous lesion is seen. The bilateral SI joints demonstrate normal alignment. The pubic symphysis is intact. The surrounding soft tissues of the pelvis are unremarkable. The included pelvis demonstrates diverticulosis of the descending and sigmoid colon without evidence of acute diverticulitis. IMPRESSION: No acute fracture or dislocation in the pelvis and bilateral hips. Dictated by: Dictated on workstation # [id number]
--- NOTE | 2021-05-17 18:32 | Diagnostic Imaging Report ---
PROCEDURE: CT lumbar spine without contrast. TECHNIQUE: Multiple contiguous axial images were obtained through the lumbar spine without the use of intravenous contrast. Sagittal and coronal reformations were then performed. Auto Exposure Controls were utilized during the CT exam to meet ALARA standards for radiation dose reduction. INDICATION: Low back pain. No known trauma. COMPARISON: 05/09/2021. FINDINGS: No acute fracture or dislocation is seen in the lumbar spine. There is grade 1 anterolisthesis of L4 on L5. Endplate sclerotic changes are present at the L5-S1 level. No suspicious focal osseous lesion is seen. No evidence of acute spinal canal stenosis. No high density material is seen within the spinal canal. Degenerative changes are seen in the lumbar spine with disc bulges, facet hypertrophy and buckling of the ligamentum flavum. These are greatest at the L4-L5 and L5-S1 levels with severe spinal canal stenosis at these levels. There is also moderate bilateral foraminal stenosis at the L4-L5 level and moderate right and severe left foraminal stenosis at L5-S1. The soft tissues of the lumbar spine are unremarkable. IMPRESSION: 1. No acute fracture or dislocation in the lumbar spine. 2. Advanced degenerative changes at the L4-L5 and L5-S1 levels. 3. Grade 1 anterolisthesis of L4 on L5. 4. Sclerotic endplate changes at the L5-S1 level. Dictated by: Dictated on workstation # [id number]
[2021-05-17 18:40] LABS: POTASSIUM 3.4 MMOL/L (3.6-5.0)
[2021-05-17 18:41] LABS: CALCIUM 9.2 MG/DL (8.5-10.1)
[2021-05-17 18:44] LABS: BILIRUBIN,TOTAL 0.8 MG/DL (0.1-1.0)
[2021-05-17] MEDS ORDERED: HYDROcodone/APAP 7.5 MG/325 MG (LORTAB, LORCET PLUS) TABLET PO ONE (18:45)
[2021-05-17 18:46] LABS: CREATININE SERUM 0.96 MG/DL (0.60-1.30)
[2021-05-17] MEDS ORDERED: HYDR-3817 PO (18:56)
[2021-05-17 19:40] VITALS: BP 109/85
== END 2021-05-17 19:40 | disposition home or self-care (01) ==
LOC: EDUNIT# 16:41 → ER 16:45
DX: M54.5 Low back pain (principal); I10 Essential (primary) hypertension; E11.9 Type 2 diabetes mellitus without complications; F41.9 Anxiety disorder, unspecified; F32.9 Major depressive disorder, single episode, unspecified; Z79.899 Other long term (current) drug therapy
CPT/HCPCS: 36415; 72131; 72192; 80053; 85025

== ENCOUNTER → 2021-05-22 | Outpatient (CLI) | payer MEDICARE, OTHER ==
[~2021-05-22] MED LIST changes: +HYDR-3817 PO
--- NOTE | 2021-05-22 20:20 | Diagnostic Imaging Report ---
PROCEDURE: MRI lumbar spine. TECHNIQUE: Multiplanar, multisequence MRI of the lumbar spine was performed without contrast. INDICATION: Severe low back pain EXAMINATION: Lumbar spine MRI from 05/22/2021. FINDINGS: There is grade 1 anterolisthesis of L4 on L5 with minimal grade 1 retrolisthesis L5 on S1. Remaining alignment is preserved. Diffuse heterogeneity throughout the bone marrow is noted which appears to represent fatty infiltration. Several rounded lesions within the lumbar vertebral bodies consistent with hemangiomas Tip of the conus unremarkable in appearance and location. L1-L2: There is disc desiccation. Minimal broad-based bulging disc material is noted. There is bilateral facet and ligamentum flavum hypertrophy. There is no central stenosis. No significant neural foraminal narrowing. L2-L3: There is minimal broad-based bulging disc material. There is bilateral facet and ligamentum flavum hypertrophy. There is no central stenosis. There is mild right neural foraminal narrowing, left neural foramen is patent. L3-L4: There is bilateral facet and ligamentum flavum hypertrophy. Minimal broad-based bulging disc material is noted. There is mild central narrowing. There is mild bilateral neural foraminal stenosis. L4-L5: There is intervertebral disc space narrowing, disc desiccation and a right paracentral broad-based bulging disc. There is bilateral facet and ligamentum flavum hypertrophy. Secondary moderate to near severe central stenosis is seen. There is narrowing of the lateral recesses, right worse than left. There is moderate bilateral neural foraminal stenosis right greater than left. L5-S1: There is intervertebral disc space narrowing, disc desiccation and a broad-based bulging disc with bilateral facet and ligamentum flavum hypertrophy. There is a cystic area adjacent to the anterior border of the right facet consistent with a synovial cyst or perineural cyst. This causes encroachment upon the right lateral recess. There is secondary moderate central stenosis. There is bilateral moderate neural foraminal stenosis. The visualized intra-abdominal structures demonstrate cystic lesions in the right kidney incompletely imaged. IMPRESSION: Multilevel degenerative findings as described above. Dictated by: Dictated on workstation # [id number]
== END ==
LOC: RAD 13:21
PROVIDERS: ATTEND Nurse Practitioner Family
DX: M51.16 Intervertebral disc disorders with radiculopathy, lumbar region (principal); M48.061 Spinal stenosis, lumbar region without neurogenic claudication; M43.16 Spondylolisthesis, lumbar region; M51.86 Other intervertebral disc disorders, lumbar region; M89.38 Hypertrophy of bone, other site; M24.28 Disorder of ligament, vertebrae
CPT/HCPCS: 72148

== ENCOUNTER → 2021-07-26 | Outpatient (CLI) | payer MEDICARE, OTHER ==
[2021-07-26 12:12] LABS: ALBUMIN 4.4 GM/DL (3.2-4.5); BILIRUBIN,TOTAL 0.5 MG/DL (0.1-1.0); CALCIUM 8.6 MG/DL (8.5-10.1); CREATININE SERUM 1.11 MG/DL (0.60-1.30); POTASSIUM 4.2 MMOL/L (3.6-5.0)
== END ==
LOC: LAB FS 09:09
PROVIDERS: ATTEND Family Medicine
DX: E11.9 Type 2 diabetes mellitus without complications (principal); Z79.899 Other long term (current) drug therapy
CPT/HCPCS: 36415; 80053; 83036; 84443

== ENCOUNTER → 2021-10-04 | Outpatient (CLI) | payer MEDICARE, OTHER ==
[~2021-10-04] MED LIST changes: +CYCL10TA25 PO; -CYCL10TA9 PO; -FLUO20CA46; +FLUO20CA48
== END ==
LOC: LABNPT 15:22
PROVIDERS: ATTEND Family Medicine
DX: Z20.822 Contact with and (suspected) exposure to COVID-19 (principal)
CPT/HCPCS: 87635

== ENCOUNTER 2021-10-14 21:16 | Emergency (ER) | payer MEDICARE, OTHER ==
[~2021-10-14] VITALS: Ht 172 cm; Wt 100.0 kg
--- OUTSIDE RECORDS SUMMARY | 2021-10-14 21:22 | XMS REPORT | Clinical Summary ---
Author Author [facility] Organization [facility] Address Unknown Phone Unavailable Care Team Providers Care Log Getter Name Role Phone Outpatient, Radiologist Unavailable Unavailable Brandon Vazquez MD Unavailable Mireya Talley MD PCP Carol Neumann RN Unavailable Unavailable Ovidio Bridges MD Unavailable Unavailable Magnus Escalante MD Unavailable [phone] Source Comments Some departments are not documenting in the electronic medical record. If you d o not see the information that you expected, contact Release of Information in [facility] [employer] Information Management department at [phone] for further assistan ce in locating additional records.[facility] Allergies Comments Active Allergy Reactions Severity Noted [...] Surgical History Surgery Date Site/Laterality Comments COLONOSCOPY ~ HYSTERECTOMY 1973 CHOLECYSTECTOMY 2009 TONSILLECTOMY Childhood APPENDECTOMY [...] (1 of 1 - PPSV23) INFLUENZA VACCINE 04/21/2021 Results Not on filefrom Last 3 Months Insurance Type Payer Benefit Subscriber ID Effective Phone Address Plan / Dates Group Medicare MEDICARE MEDICARE [id number] 2016-P [phone] [place] [address] Medicare CIGNA CIGNA [id number] 2015-P [phone] [address] MED[address]ARE resent [id number] [place] [id number] [phone] 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 needed Care Teams Start Date End Date Log Getter Relationship Specialty 02/05/16 Mireya Talley MD PCP - General Family [facility] Main Medicine [place], [place] [id number] 12/18/15 Outpatient, Radiologist 01/22/16 Brandon Vazquez MD Surgical [address] Oncology [facility] [address] [place] [id number] 02/05/16 Carol Neumann, RN 02/07/16 Ovidio Bridges MD Anesthesiolo Forwarding Address gy Unknown 02/29/16 Magnus Escalante, Endocrinolog y and [address] [facility] [place] [address]
[2021-10-14 21:23] VITALS: BP 153/87
--- NOTE | 2021-10-14 21:40 | ED Back Pain ---
General Stated Complaint: LOW BP,BACK BURNING Source of Information: Patient, Family Exam Limitations: No Limitations History of Present Illness Date Seen by Provider: Oct 14, 2021 Time Seen by Provider: 21:21 Initial Comments 71-year-old female with past medical history of diabetes, hypertension, hypothyroidism, chronic back pain coming in for mid upper back burning pain this been going on for couple hours. It is constant, moderate, nothing seems to make it better or worse. Has not tried any medications for it as of yet. Has never really had pain like this before. Does not radiate anywhere. Typically her back pain is lower. Denies any new trauma. Says she just got over influenza about a week ago. She is otherwise denying any shortness of breath, cough, nausea, vomiting, diarrhea, fever, chills, weakness, numbness, abdominal pain, dysuria, hematuria, or any other concerns Allergies and Home Medications Allergies Coded Allergies: dexamethasone (Verified Allergy, Unknown, 05/17/21) Uncoded Allergies: CONTTRAST DYE (Allergy, Unknown, 05/17/21) Patient Home Medication List Home Medication List Reviewed: Yes ALPRAZolam (Xanax Tablet) 0.25 Mg Tablet, (Reported) Entered as Reported by: KATIE BERGER on 07/10/19108 Cyclobenzaprine HCl (Cyclobenzaprine HCl) 10 Mg Tablet, 10 MG PO HS PRN for SPASMS Prescribed by: CARO HOLMAN on 05/09/21 1218 Fluoxetine HCl (Fluoxetine HCl) 20 Mg Capsule, (Reported) Entered as Reported by: KATIE BERGER on 07/10/19108 Gabapentin (Gabapentin) 100 Mg Capsule, 100 MG PO Q8H Prescribed by: CARO HOLMAN on 05/09/21 121 Hydrochlorothiazide (Hydrochlorothiazide) 12.5 Mg Capsule, (Reported) Entered as Reported by: KATIE BERGER on 07/10/19108 Hydrocodone Bit/Acetaminophen (Lortab 5 Mg Tablet) 1 Each Tablet, (Reported) Entered as Reported by: KATIE BERGER on 07/10/19108 Hydrocodone/Acetaminophen (Hydrocodone-Acetamin 5-325 mg) 1 Each Tablet, 1 TAB PO Q4H PRN for PAIN-MODERATE (5-7) Prescribed by: JEWEL HUNTER on 05/07/21 2332 Hydrocodone/Acetaminophen (Hydrocodone-Acetamin 7.5-325) 1 Each Tablet, 1 EACH PO Q6H PRN for PAIN-MODERATE (5-7) Prescribed by: GAGE GONZALES on 05/17/21 1857 Levothyroxine Sodium (Levothyroxine Sodium) 150 Mcg Tablet, (Reported) Entered as Reported by: KATIE BERGER on 07/10/19108 Lisinopril (Lisinopril) 20 Mg Tablet, (Reported) Entered as Reported by: KATIE BERGER on 07/10/19108 Metformin HCl (Metformin HCl) 500 Mg Tablet, (Reported) Entered as Reported by: KATIE BERGER on 07/10/19108 Metoprolol Succinate (Metoprolol Succinate) 100 Mg Tab.er.24h, (Reported) Entered as Reported by: KATIE BERGER on 07/10/19108 Nabumetone (Nabumetone) 500 Mg Tablet, (Reported) Entered as Reported by: KATIE BERGER on 07/10/19108 Omeprazole (Omeprazole) 20 Mg Capsule.dr, (Reported) Entered as Reported by: KATIE BERGER on 07/10/19108 Pravastatin Sodium (Pravastatin Sodium) 40 Mg Tablet, (Reported) Entered as Reported by: KATIE BERGER on 07/10/19108 Tramadol HCl (Tramadol HCl) 50 Mg Tablet, 50 MG PO Q8H PRN for PAIN Prescribed by: CARO HOLMAN on 05/09/21 1219 Review of Systems Constitutional: No chills, No fever EENTM: No blurred vision Respiratory: No cough, No short of breath Cardiovascular: No chest pain Gastrointestinal: No abdominal pain, No diarrhea, No nausea, No vomiting Musculoskeletal: back pain Skin: no symptoms reported; No rash Psychiatric/Neurological: No Symptoms Reported All Other Systems Reviewed Negative Unless Noted: Yes Past Apibnya-Pkirvr-Oyruit Hx Patient Social History Tobacco Use?: No Immunizations Up To Date First/Initial COVID19 Vaccinat: October 2020 Second COVID19 Vaccination Guero: November 2020 Third COVID19 Vaccination Date: October 2020 Seasonal Allergies Seasonal Allergies: No Past Medical History Surgeries: Yes Bladder Surgery, Gallbladder, Thyroidectomy, Tonsillectomy Respiratory: No Cardiac: Yes High Cholesterol, Hypertension Neurological: No Genitourinary: Yes Bladder Infection Gastrointestinal: No Musculoskeletal: No Endocrine: Yes Hypothyroidsim, Diabetes, Non-Insulin dep HEENT: No Cancer: Yes Breast, Thyroid What Type of Treatment Did You: Surgical Intervention Psychosocial: Yes Anxiety, Depression Integumentary: No Blood Disorders: No Adverse Reaction/Blood Tranf: No Family Medical History DVT/PE Physical Exam Vital Signs Vital Signs - First Documented 10/14/21 21:23 Temp 36.0 Pulse 89 Resp 17 B/P (MAP) 153/87 (109) Pulse Ox 97 O2 Delivery Room Air Capillary Refill : Height, Weight, BMI Height: '" Weight: lbs. oz. kg; 36.00 BMI Method: General Appearance: No Apparent Distress, WD/WN HEENT: PERRL/EOMI, Normal ENT Inspection, Pharynx Normal Neck: Full Range of Motion, Normal Inspection, Non Tender, Supple Cardiovascular: Regular Rate, Rhythm, No Edema, Normal Peripheral Pulses Respiratory: Chest Non Tender, Lungs Clear, Normal Breath Sounds, No Accessory Muscle Use, No Respiratory Distress Gastrointestinal: Normal Bowel Sounds, Non Tender, Soft; No Distended, No Guarding Back: Normal Inspection, No CVA Tenderness, No Vertebral Tenderness, Other (Some muscular tenderness in the upper back between the scapula, no rash in the area including no signs of shingles) Extremity: Normal Capillary Refill, Normal Inspection, Normal Range of Motion, Non Tender, No Calf Tenderness Neurologic/Psychiatric: Alert, No Motor/Sensory Deficits, Normal Mood/Affect Skin: Normal Color, Warm/Dry Lymphatic: No Adenopathy Progress/Results/Core Measures Results/Orders Lab Results Laboratory Tests Test 10/14/21 21:20 10/14/21 21:50 Range/Units Urine Color YELLOW Urine Clarity CLOUDY Urine pH 6.0 5-9 Urine Specific [place] 1.025 H 1.016-1.022 Urine Protein NEGATIVE NEGATIVE Urine Glucose (UA) NEGATIVE NEGATIVE Urine Ketones 1+ H NEGATIVE Urine Nitrite NEGATIVE NEGATIVE Urine Bilirubin 1+ H NEGATIVE Urine Urobilinogen 0.2 < = 1.0 MG/DL Urine Leukocyte Esterase 1+ H NEGATIVE Urine RBC (Auto) NEGATIVE NEGATIVE Urine RBC RARE /HPF Urine WBC 2-5 /HPF Urine Squamous Epithelial Cells 5-10 /HPF Urine Crystals NONE /LPF Urine Bacteria MODERATE H /HPF Urine Casts NONE /LPF Urine Mucus SMALL H /LPF Urine Culture Indicated YES White Blood Count 7.9 4.3-11.0 10^3/uL Red Blood Count 4.29 3.80-5.11 10^6/uL Hemoglobin 13.3 11.5-16.0 g/dL Hematocrit 39 35-52 % Mean Corpuscular Volume 90 80-99 fL Mean Corpuscular Hemoglobin 31 25-34 pg Mean Corpuscular Hemoglobin Concent 35 32-36 g/dL Red Cell Distribution Width 12.9 10.0-14.5 % Platelet Count 268 130-400 10^3/uL Mean Platelet Volume 9.3 9.0-12.2 fL Immature Granulocyte % (Auto) 0 % Neutrophils (%) (Auto) 66 42-75 % Lymphocytes (%) (Auto) 25 12-44 % Monocytes (%) (Auto) 7 0-12 % Eosinophils (%) (Auto) 1 0-10 % Basophils (%) (Auto) 1 0-10 % Neutrophils # (Auto) 5.2 1.8-7.8 X 10^3 Lymphocytes # (Auto) 2.0 1.0-4.0 X 10^3 Monocytes # (Auto) 0.5 0.0-1.0 X 10^3 Eosinophils # (Auto) 0.1 0.0-0.3 10^3/uL Basophils # (Auto) 0.0 0.0-0.1 10^3/uL Immature Granulocyte # (Auto) 0.0 0.0-0.1 10^3/uL Sodium Level 140 135-145 MMOL/L Potassium Level 3.6 3.6-5.0 MMOL/L Chloride Level 99 98-107 MMOL/L Carbon Dioxide Level 23 21-32 MMOL/L Anion Gap 18 H 5-14 MMOL/L Blood Urea Nitrogen 25 H 7-18 MG/DL Creatinine 1.10 0.60-1.30 MG/DL Estimat Glomerular Filtration Rate 54 BUN/Creatinine Ratio 23 Glucose Level 188 H 70-105 MG/DL Calcium Level 8.1 L 8.5-10.1 MG/DL Corrected Calcium 7.8 L 8.5-10.1 MG/DL Total Bilirubin 0.6 0.1-1.0 MG/DL Aspartate Amino Transf (AST/SGOT) 24 5-34 U/L Alanine Aminotransferase (ALT/SGPT) 31 0-55 U/L Alkaline Phosphatase 81 40-136 U/L Troponin I < 0.30 <0.30 NG/ML Total Protein 7.2 6.4-8.2 GM/DL Albumin 4.4 3.2-4.5 GM/DL Lipase 74 8-78 U/L My Orders Orders - CARO HOLMAN MD Cbc With Automated Diff (10/14/21 21:32) Comprehensive Metabolic Panel (10/14/21 21:32) Lipase (10/14/21 21:32) Ua Culture If Indicated (10/14/21 21:32) Troponin I Fs (10/14/21 21:32) Chest 1 View Ap/Pa Only (10/14/21 21:32) Ed Iv/Invasive Line Start (10/14/21 21:32) Ekg Tracing (10/14/21 21:32) Antacid Suspension (Mylanta Suspension (10/14/21 21:45) Acetaminophen Tablet (Tylenol Tablet) (10/14/21 21:45) Gabapentin Capsule/Tablet (Neurontin Cap (10/14/21 21:45) Urine Culture (10/14/21 21:20) Medications Given in ED Current Medications Medications Dose Ordered Sig/Delfina Route Start Time Stop Time Status Last Admin Dose Admin Acetaminophen 1,000 mg ONCE ONCE PO 10/14/21 21:45 10/14/21 21:46 DC 10/14/21 21:56 1,000 MG Al Hydrox/Mg Hydrox/Simethicone 30 ml ONCE ONCE PO 10/14/21 21:45 10/14/21 21:46 DC 10/14/21 21:59 30 ML Gabapentin 300 mg ONCE ONCE PO 10/14/21 21:45 10/14/21 21:46 DC 10/14/21 21:57 300 MG Vital Signs/I&O 10/14/21 21:23 Temp 36.0 Pulse 89 Resp 17 B/P (MAP) 153/87 (109) Pulse Ox 97 O2 Delivery Room Air Progress Progress Note : Progress Note 71-year-old female with above history coming in for mid upper back burning pain that is been constant for the past couple hours. ABCs were intact and vitals were stable on presentation. Physical exam reassuring with no focal abnormalities including no rash on her back, especially given its of burning pain. She does have some muscular tenderness in her upper back but nothing midline. Given she is diabetic this could be an atypical ACS, but I think that is unlikely. An IV was placed and basic labs were obtained including cardiac biomarkers and lipase. Given the burning sensation she was given some Maalox to see if that would help as well. Chest x-ray on my interpretation without any acute abnormalities including no obvious pneumothorax, pneumonia, cardiac silhouette is stable from prior visit labs including troponin negative. Most importantly after she received Maalox her symptoms essentially resolved. Could be related to some type of reflux versus nerve pain in her back given she has similar pain in her lower back. I believe she is stable for discharge with outpatient follow-up with her PCP and pain doctor. She was sent home with strict return precautions. Initial ECG Impression Date: Oct 14, 2021 Initial ECG Impression Time: 22:17 Initial ECG Rate: 76 Initial ECG Rhythm: Normal Sinus Comment Narrow QRS, normal axis, no significant ST changes or T wave abnormalities, overall appears similar to prior EKG Diagnostic Imaging Diagonstic Imaging: Xray Plain Films/CT/US/NM/MRI: chest Comments [facility] [place] NAME: JENNIFER [facility] REC#: [id number] PT STATUS: REG ER : 1950 PHYSICIAN: CARO HOLMAN MD ADMIT DATE: 10/14/21/ER FS Signed Date of Exam:10/14/21 CHEST 1 VIEW AP/PA ONLY INDICATION: Chest pain COMPARISON: 07/10/2019 FINDINGS: The lungs are clear. No failure, effusion or pneumothorax. IMPRESSION: Stable negative chest. Dictated by: Dictated on workstation # [id number] Dict: 10/14/212157 Trans: 10/14/212211 [facility] [id number] Interpreted by: JOSÉ FAULKNER Electronically signed by: JOSÉ FAULKNER 10/14/212211 Departure Impression Primary Impression: Mid back pain Disposition: HOME, SELF-CARE Condition: Stable Departure-Patient Inst. Decision time for Depature: 22:47 Referrals: DAVID ALONSO MD (PCP/Family) Primary Care Physician Patient Instructions: Upper Back Pain ED Add. Discharge Instructions: Please follow-up with your regular doctor in the next couple days if things aren't improving. Otherwise you can try taking [id number] acid reflux medications like Maalox to see if that helps. CARO HOLMAN MD Oct 14, 2021 21:40
[2021-10-14] MEDS ORDERED: GABAPENTIN 100 MG (NEURONTIN) CAP PO ONE (21:45)
[2021-10-14] MEDS ORDERED: ANTACID SUSP 30 ML UDC (MYLANTA) PO ONE (21:45)
[2021-10-14] MEDS ORDERED: ACETAMINOPHEN 500 MG TAB (TYLENOL) PO ONE (21:45)
--- NOTE | 2021-10-14 22:01 | Diagnostic Imaging Report ---
INDICATION: Chest pain COMPARISON: 07/10/2019 FINDINGS: The lungs are clear. No failure, effusion or pneumothorax. IMPRESSION: Stable negative chest. Dictated by: Dictated on workstation # [id number]
[2021-10-14 22:06] LABS: CLARITY,URINE CLOUDY; COLOR,URINE YELLOW; GLUCOSE, URINE (UA) NEGATIVE (NEGATIVE); KETONES,URINE 1+ (NEGATIVE); LEUKOCYTE ESTERASE ,URINE 1+ (NEGATIVE); NITRITE,URINE NEGATIVE (NEGATIVE); PROTEIN,URINE NEGATIVE (NEGATIVE)
[2021-10-14 22:17] LABS: BILIRUBIN,URINE 1+ (NEGATIVE); RBC,URINE RARE /HPF
[2021-10-14 22:18] LABS: BASOPHILS % (AUTO) 1 % (0-10); EOSINOPHILS # (AUTO) 0.1 10^3/uL (0.0-0.3); EOSINOPHILS % (AUTO) 1 % (0-10); HEMATOCRIT 39 % (35-52); HEMOGLOBIN 13.3 g/dL (11.5-16.0); LYMPHOCYTES % (AUTO) 25 % (12-44); MEAN CORPUSCULAR HEMOGLOBIN 31 pg (25-34); MEAN CORPUSCULAR HGB CONC 35 g/dL (32-36); MEAN CORPUSCULAR VOLUME 90 fL (80-99); MEAN PLATELET VOLUME 9.3 fL (9.0-12.2); MONOCYTES # (AUTO) 0.5 X 10^3 (0.0-1.0); MONOCYTES % (AUTO) 7 % (0-12); NEUTROPHILS # (AUTO) 5.2 X 10^3 (1.8-7.8); NEUTROPHILS % (AUTO) 66 % (42-75); PLATELET COUNT 268 10^3/uL (130-400); WHITE BLOOD COUNT 7.9 10^3/uL (4.3-11.0)
[2021-10-14 22:18] LABS: BACTERIA,URINE MODERATE /HPF
[2021-10-14 22:29] LABS: CARBON DIOXIDE 23 MMOL/L (21-32); CHLORIDE 99 MMOL/L (98-107); POTASSIUM 3.6 MMOL/L (3.6-5.0); SODIUM 140 MMOL/L (135-145)
[2021-10-14 22:30] LABS: ALANINE AMINOTRANSFERASE 31 U/L (0-55); ALBUMIN 4.4 GM/DL (3.2-4.5); ALKALINE PHOSPHATASE 81 U/L (40-136); BILIRUBIN,TOTAL 0.6 MG/DL (0.1-1.0); BUN/CREATININE RATIO 23; CALCIUM 8.1 MG/DL (8.5-10.1); GFR ESTIMATED 54; GLUCOSE 188 MG/DL (70-105); LIPASE 74 U/L (8-78); TOTAL PROTEIN 7.2 GM/DL (6.4-8.2)
== END 2021-10-14 23:03 | disposition home or self-care (01) ==
LOC: EDUNIT# 21:16 → ER FS 21:17
DX: G89.29 Other chronic pain (principal); M54.6 Pain in thoracic spine; I10 Essential (primary) hypertension; E78.00 Pure hypercholesterolemia, unspecified; K21.9 Gastro-esophageal reflux disease without esophagitis; F41.9 Anxiety disorder, unspecified; F32.9 Major depressive disorder, single episode, unspecified; E03.9 Hypothyroidism, unspecified; E11.9 Type 2 diabetes mellitus without complications; Z79.890 Hormone replacement therapy; Z79.899 Other long term (current) drug therapy; Z79.84 Long term (current) use of oral hypoglycemic drugs; Z79.891 Long term (current) use of opiate analgesic
CPT/HCPCS: 36415; 71045; 80053; 81000; 83690; 84484; 85025; 87088

== ENCOUNTER 2021-10-17 18:58 | Emergency (ER) | payer MEDICARE, OTHER ==
[~2021-10-17] VITALS: Ht 172.7 cm; Wt 101.4 kg
[2021-10-17] MEDS ORDERED: NS IV 1000 ML 1,000 ML IV SCH ×2 (19:30→20:30)
[2021-10-17] MEDS ORDERED: ONDANSETRON 4 MG/2 ML (SDV) Z0FRAN IVP ONE (19:30)
[2021-10-17] MEDS ORDERED: FAMOTIDINE 20MG/2ML IV (PEPCID) IVP ONE (19:30)
[2021-10-17 19:35] LABS: BASOPHILS # (AUTO) 0.1 10^3/uL (0.0-0.1); BASOPHILS % (AUTO) 1 % (0-10); EOSINOPHILS % (AUTO) 1 % (0-10); HEMATOCRIT 40 % (35-52); HEMOGLOBIN 13.8 g/dL (11.5-16.0); LYMPHOCYTES # (AUTO) 2.6 10^3/uL (1.0-4.0); LYMPHOCYTES % (AUTO) 33 % (12-44); MEAN CORPUSCULAR HEMOGLOBIN 31 pg (25-34); MEAN CORPUSCULAR HGB CONC 34 g/dL (32-36); MEAN CORPUSCULAR VOLUME 90 fL (80-99); MEAN PLATELET VOLUME 9.2 fL (9.0-12.2); MONOCYTES # (AUTO) 0.6 10^3/uL (0.0-1.0); MONOCYTES % (AUTO) 8 % (0-12); NEUTROPHILS # (AUTO) 4.6 10^3/uL (1.8-7.8); NEUTROPHILS % (AUTO) 58 % (42-75); PLATELET COUNT 257 10^3/uL (130-400)
[2021-10-17 19:37] LABS: CLARITY,URINE SL CLOUDY; COLOR,URINE YELLOW; GLUCOSE, URINE (UA) NEGATIVE (NEGATIVE); KETONES,URINE TRACE (NEGATIVE); LEUKOCYTE ESTERASE ,URINE TRACE (NEGATIVE); NITRITE,URINE POSITIVE (NEGATIVE); PH,URINE 6.5 (5-9); PROTEIN,URINE NEGATIVE (NEGATIVE)
[2021-10-17 19:47] LABS: BILIRUBIN,URINE 1+ (NEGATIVE); RBC,URINE RARE /HPF
[2021-10-17 19:48] LABS: BACTERIA,URINE MODERATE /HPF
[2021-10-17 19:58] LABS: POTASSIUM 3.9 MMOL/L (3.6-5.0)
[2021-10-17 19:59] LABS: ALBUMIN 4.5 GM/DL (3.2-4.5); BILIRUBIN,TOTAL 0.7 MG/DL (0.1-1.0); CALCIUM 8.4 MG/DL (8.5-10.1); CREATININE SERUM 1.04 MG/DL (0.60-1.30); TOTAL PROTEIN 7.3 GM/DL (6.4-8.2)
[2021-10-17] MEDS ORDERED: cefTRIAXone 1 GM PRE-MIX 50 ML IV ONE (20:45)
--- NOTE | 2021-10-17 21:02 | ED General ---
General Chief Complaint: General Problems/Pain Stated Complaint: NAUSEA,LIGHTHEADED Nursing Triage Note: Patient states that she has been dizzy and nauseated today. Patient reports diarrhea for the last several months. Patient had a positive covid exposure over a week ago. Patient checked in with fever but denies having a fever when asked. Source of Information: Patient Exam Limitations: No Limitations History of Present Illness Date Seen by Provider: Oct 17, 2021 Time Seen by Provider: 20:58 Initial Comments Patient is a 71-year-old female presents with dizziness and nausea today. She also reports suprapubic pain. Patient reports several months of diarrhea. She had a positive exposure to Covid 1 week ago. Patient reports subjective fever but is afebrile in the ED. No chills, sweats, vomiting, chest pain palpitation shortness of breath. Dizziness is positional. No extremity weakness or loss of sensation. No urinary frequency urgency or dysuria. Patient also reports feeling symptoms of anxiousness and dread upon in size of illness. No other acute symptoms or complaints. Timing/Duration: 12-24 Hours Severity: Moderate Modifying Factors: improves with Other Associated Systoms: Other Allergies and Home Medications Allergies Coded Allergies: dexamethasone (Verified Allergy, Unknown, 05/17/21) Uncoded Allergies: CONTTRAST DYE (Allergy, Unknown, 05/17/21) Patient Home Medication List Home Medication List Reviewed: Yes ALPRAZolam (Xanax Tablet) 0.25 Mg Tablet, (Reported) Entered as Reported by: KATIE BERGER on 07/10/19108 Cyclobenzaprine HCl (Cyclobenzaprine HCl) 10 Mg Tablet, 10 MG PO HS PRN for SPASMS Prescribed by: CARO HOLMAN on 05/09/21 1218 Fluoxetine HCl (Fluoxetine HCl) 20 Mg Capsule, (Reported) Entered as Reported by: KATIE BERGER on 07/10/19108 Gabapentin (Gabapentin) 100 Mg Capsule, 100 MG PO Q8H Prescribed by: CARO HOLMAN on 05/09/21 1218 Hydrochlorothiazide (Hydrochlorothiazide) 12.5 Mg Capsule, (Reported) Entered as Reported by: KATIE BERGER on 07/10/19108 Hydrocodone Bit/Acetaminophen (Lortab 5 Mg Tablet) 1 Each Tablet, (Reported) Entered as Reported by: KATIE BERGER on 07/10/19108 Hydrocodone/Acetaminophen (Hydrocodone-Acetamin 5-325 mg) 1 Each Tablet, 1 TAB PO Q4H PRN for PAIN-MODERATE (5-7) Prescribed by: JEWEL HUNTER on 05/07/21 2332 Hydrocodone/Acetaminophen (Hydrocodone-Acetamin 7.5-325) 1 Each Tablet, 1 EACH PO Q6H PRN for PAIN-MODERATE (5-7) Prescribed by: GAGE GONZALES on 05/17/21 1857 Levothyroxine Sodium (Levothyroxine Sodium) 150 Mcg Tablet, (Reported) Entered as Reported by: KATIE BERGER on 07/10/19108 Lisinopril (Lisinopril) 20 Mg Tablet, (Reported) Entered as Reported by: KATIE BERGER on 07/10/19108 Metformin HCl (Metformin HCl) 500 Mg Tablet, (Reported) Entered as Reported by: KATIE BERGER on 07/10/19108 Metoprolol Succinate (Metoprolol Succinate) 100 Mg Tab.er.24h, (Reported) Entered as Reported by: KATIE BERGER on 07/10/19108 Nabumetone (Nabumetone) 500 Mg Tablet, (Reported) Entered as Reported by: KATIE BERGER on 07/10/19108 Omeprazole (Omeprazole) 20 Mg Capsule., (Reported) Entered as Reported by: KATIE BERGER on 07/10/19108 Pravastatin Sodium (Pravastatin Sodium) 40 Mg Tablet, (Reported) Entered as Reported by: KATIE BERGER on 07/10/19108 Tramadol HCl (Tramadol HCl) 50 Mg Tablet, 50 MG PO Q8H PRN for PAIN Prescribed by: CARO HOLMAN on 05/09/21 1219 Review of Systems Review of Systems Constitutional: see HPI EENTM: see HPI Respiratory: see HPI Cardiovascular: see HPI Gastrointestinal: see HPI Genitourinary: see HPI Musculoskeletal: see HPI Skin: see HPI Psychiatric/Neurological: See HPI Hematologic/Lymphatic: See HPI Immunological/Allergic: see HPI All Other Systems Reviewed Negative Unless Noted: Yes Past Vxufcib-Wciams-Slycsj Hx Patient Social History Tobacco Use?: Yes Substance use?: No Alcohol Use?: No Pt feels they are or have been: No Immunizations Up To Date First/Initial COVID19 Vaccinat: October 2020 Second COVID19 Vaccination Guero: yes Third COVID19 Vaccination Date: October 2020 COVID19 Vaccine [employer]: [employer] Seasonal Allergies Seasonal Allergies: No Past Medical History Surgeries: Yes Bladder Surgery, Gallbladder, Thyroidectomy, Tonsillectomy Respiratory: No Cardiac: Yes High Cholesterol, Hypertension Neurological: No Genitourinary: Yes Bladder Infection Gastrointestinal: No Musculoskeletal: No Endocrine: Yes Hypothyroidsim, Diabetes, Non-Insulin dep HEENT: No Cancer: Yes Breast, Thyroid What Type of Treatment Did You: Surgical Intervention Psychosocial: Yes Anxiety, Depression Integumentary: No Blood Disorders: No Adverse Reaction/Blood Tranf: No Family Medical History DVT/PE Physical Exam Vital Signs Vital Signs - First Documented 10/17/21 19:11 Temp 37.0 Pulse 73 Resp 73 B/P (MAP) 157/88 (111) Pulse Ox 97 O2 Delivery Room Air Capillary Refill : Less Than 3 Seconds Height, Weight, BMI Height: '" Weight: lbs. oz. kg; 33.00 BMI Method: General Appearance: No Apparent Distress, Anxious Eyes: Bilateral Eye Normal Inspection, Bilateral Eye PERRL, Bilateral Eye EOMI HEENT: PERRL/EOMI, Normal ENT Inspection, Pharynx Normal Neck: Full Range of Motion, Non Tender, Supple Respiratory: Chest Non Tender, Lungs Clear Cardiovascular: Regular Rate, Rhythm Gastrointestinal: Non Tender, Soft Back: Normal Inspection, No CVA Tenderness Neurologic/Psychiatric: Alert, Oriented x3 Skin: Normal Color Focused Exam Sepsis Stage: Ruled Out Lactate Level 10/17/21 19:44: Lactic Acid Level 2.20*H Lactic Acid Level Laboratory Tests Test 10/17/21 19:44 Lactic Acid Level 2.20 MMOL/L (0.50-2.00) *H Progress/Results/Core Measures Suspected Sepsis SIRS Temperature: Pulse: 73 Respiratory Rate: 73 Laboratory Tests 10/17/21 19:26: White Blood Count 8.0 Blood Pressure 157 /88 Mean: 111 10/17/21 19:44: Lactic Acid Level 2.20*H Laboratory Tests 10/17/21 19:26: Creatinine 1.04, Platelet Count 257, Total Bilirubin 0.7 Results/Orders Lab Results Laboratory Tests Test 10/17/21 19:22 10/17/21 19:26 10/17/21 19:44 Range/Units Urine Color YELLOW Urine Clarity SL CLOUDY Urine pH 6.5 5-9 Urine Specific [place] 1.020 1.016-1.022 Urine Protein NEGATIVE NEGATIVE Urine Glucose (UA) NEGATIVE NEGATIVE Urine Ketones TRACE H NEGATIVE Urine Nitrite POSITIVE H NEGATIVE Urine Bilirubin 1+ H NEGATIVE Urine Urobilinogen 0.2 < = 1.0 MG/DL Urine Leukocyte Esterase TRACE H NEGATIVE Urine RBC (Auto) TRACE-I H NEGATIVE Urine RBC RARE /HPF Urine WBC 2-5 /HPF Urine Squamous Epithelial Cells 2-5 /HPF Urine Crystals NONE /LPF Urine Bacteria MODERATE H /HPF Urine Casts NONE /LPF Urine Mucus SMALL H /LPF Urine Culture Indicated YES White Blood Count 8.0 4.3-11.0 10^3/uL Red Blood Count 4.48 3.80-5.11 10^6/uL Hemoglobin 13.8 11.5-16.0 g/dL Hematocrit 40 35-52 % Mean Corpuscular Volume 90 80-99 fL Mean Corpuscular Hemoglobin 31 25-34 pg Mean Corpuscular Hemoglobin Concent 34 32-36 g/dL Red Cell Distribution Width 12.8 10.0-14.5 % Platelet Count 257 130-400 10^3/uL Mean Platelet Volume 9.2 9.0-12.2 fL Immature Granulocyte % (Auto) 1 % Neutrophils (%) (Auto) 58 42-75 % Lymphocytes (%) (Auto) 33 12-44 % Monocytes (%) (Auto) 8 0-12 % Eosinophils (%) (Auto) 1 0-10 % Basophils (%) (Auto) 1 0-10 % Neutrophils # (Auto) 4.6 1.8-7.8 10^3/uL Lymphocytes # (Auto) 2.6 1.0-4.0 10^3/uL Monocytes # (Auto) 0.6 0.0-1.0 10^3/uL Eosinophils # (Auto) 0.0 0.0-0.3 10^3/uL Basophils # (Auto) 0.1 0.0-0.1 10^3/uL Immature Granulocyte # (Auto) 0.0 0.0-0.1 10^3/uL Sodium Level 136 135-145 MMOL/L Potassium Level 3.9 3.6-5.0 MMOL/L Chloride Level 96 L 98-107 MMOL/L Carbon Dioxide Level 24 21-32 MMOL/L Anion Gap 16 H 5-14 MMOL/L Blood Urea Nitrogen 21 H 7-18 MG/DL Creatinine 1.04 0.60-1.30 MG/DL Estimat Glomerular Filtration Rate 58 BUN/Creatinine Ratio 20 Glucose Level 165 H 70-105 MG/DL Calcium Level 8.4 L 8.5-10.1 MG/DL Corrected Calcium 8.0 L 8.5-10.1 MG/DL Total Bilirubin 0.7 0.1-1.0 MG/DL Aspartate Amino Transf (AST/SGOT) 30 5-34 U/L Alanine Aminotransferase (ALT/SGPT) 36 0-55 U/L Alkaline Phosphatase 85 40-136 U/L Total Protein 7.3 6.4-8.2 GM/DL Albumin 4.5 3.2-4.5 GM/DL Lactic Acid Level 2.20 *H 0.50-2.00 MMOL/L My Orders Orders - JEWEL HUNTER DO Cbc With Automated Diff (10/17/21 19:28) Comprehensive Metabolic Panel (10/17/21 19:28) Lactic Acid Analyzer (10/17/21 19:28) Ua Culture If Indicated (10/17/21 19:28) Ns Iv 1000 Ml (Sodium Chloride 0.9%) (10/17/21 19:30) Ondansetron Injection (Zofran Injectio (10/17/21 19:30) Famotidine Injection (Pepcid Injection) (10/17/21 19:30) Ed Iv/Invasive Line Start (10/17/21 19:36) Urine Culture (10/17/21 19:22) Ns Iv 1000 Ml (Sodium Chloride 0.9%) (10/17/21 20:30) Ceftriaxone 1 Gm Pre-Mix (Rocephin 1 Gm (10/17/21 20:45) Medications Given in ED Current Medications Medications Dose Ordered Sig/Delfina Route Start Time Stop Time Status Last Admin Dose Admin Famotidine 20 mg ONCE ONCE IVP 10/17/21 19:30 10/17/21 19:31 DC 10/17/21 19:47 20 MG Ondansetron HCl 4 mg ONCE ONCE IVP 10/17/21 19:30 10/17/21 19:31 DC 10/17/21 19:47 4 MG Vital Signs/I&O 10/17/21 19:11 Temp 37.0 Pulse 73 Resp 73 B/P (MAP) 157/88 (111) Pulse Ox 97 O2 Delivery Room Air Capillary Refill : Less Than 3 Seconds Blood Pressure Mean: 111 Departure Communication (Admissions) Patient with IV fluids and antibiotics given in the emergency department. Dizziness resolved. Abdomen soft, nonsurgical nontender on repeat evaluation. Will obtain repeat lactic acid and anticipate discharge home with treatment of urinary tract infection. Return precautions to be reviewed prior to departure. Impression Primary Impression: Dizziness Additional Impressions: Nausea Urinary tract infection Disposition: HOME, SELF-CARE Condition: Stable Departure-Patient Inst. Decision time for Depature: 21:04 Referrals: DAVID ALONSO MD (PCP/Family) Primary Care Physician Patient Instructions: Urinary Tract Infection, Adult (DC), Nausea and Vomiting, Adult Add. Discharge Instructions: Your evaluated in the emergency department for dizziness nausea and abdominal pain. Your symptoms are consistent with a urinary tract infection. Please increase fluids take nausea medication antibiotics as prescribed. Hold blood pressure medication if it continues to be low or if he continued to be dizzy. Return to the ED if new or worsening symptoms. Otherwise, follow-up with your PCP in 3 to 5 days. All discharge instructions reviewed with patient and/or family. Voiced understanding. Scripts Cephalexin (Cephalexin) 500 Mg Tablet 500 MG PO TID, #15 TAB Prov: JEWEL HUNTER DO 10/17/21 Ondansetron (Ondansetron Odt) 4 Mg Tab.rapdis 4 MG PO Q6H, #10 TAB Prov: JEWEL HUNTER DO 10/17/21 JEWEL HUNTER DO Oct 17, 2021 21:02
[2021-10-17] MEDS ORDERED: ONDA4TAB11 PO (21:07)
[2021-10-17] MEDS ORDERED: CEPH500T PO (21:07)
[2021-10-17 22:18] VITALS: BP 136/82
== END 2021-10-17 22:18 | disposition home or self-care (01) ==
LOC: EDUNIT# 18:58 → ER FS 18:59
DX: R42 Dizziness and giddiness (principal); R11.0 Nausea; N39.0 Urinary tract infection, site not specified; I10 Essential (primary) hypertension; E78.00 Pure hypercholesterolemia, unspecified; E03.9 Hypothyroidism, unspecified; E11.9 Type 2 diabetes mellitus without complications; F41.9 Anxiety disorder, unspecified; F32.9 Major depressive disorder, single episode, unspecified; Z72.0 Tobacco use; Z79.890 Hormone replacement therapy; Z79.84 Long term (current) use of oral hypoglycemic drugs; Z79.899 Other long term (current) drug therapy
CPT/HCPCS: 36415; 80053; 81000; 83605; 85025; 87088

== ENCOUNTER → 2021-10-29 | Outpatient (CLI) | payer MEDICARE, OTHER ==
[~2021-10-29] MED LIST changes: +CEPH500T PO; +ONDA4TAB11 PO
[2021-10-29 09:58] LABS: BASOPHILS % (AUTO) 1 % (0-10); EOSINOPHILS # (AUTO) 0.1 10^3/uL (0.0-0.3); EOSINOPHILS % (AUTO) 1 % (0-10); HEMATOCRIT 38 % (35-52); HEMOGLOBIN 13.4 g/dL (11.5-16.0); LYMPHOCYTES # (AUTO) 1.2 10^3/uL (1.0-4.0); LYMPHOCYTES % (AUTO) 20 % (12-44); MEAN CORPUSCULAR HEMOGLOBIN 31 pg (25-34); MEAN CORPUSCULAR HGB CONC 35 g/dL (32-36); MEAN CORPUSCULAR VOLUME 89 fL (80-99); MEAN PLATELET VOLUME 8.5 fL (9.0-12.2); MONOCYTES # (AUTO) 0.4 10^3/uL (0.0-1.0); MONOCYTES % (AUTO) 7 % (0-12); NEUTROPHILS # (AUTO) 4.3 10^3/uL (1.8-7.8); NEUTROPHILS % (AUTO) 71 % (42-75); PLATELET COUNT 245 10^3/uL (130-400)
== END ==
LOC: LAB FS 09:27
PROVIDERS: ATTEND Family Medicine
DX: E83.51 Hypocalcemia (principal); K92.1 Melena; F32.9 Major depressive disorder, single episode, unspecified
CPT/HCPCS: 36415; 82274; 82330; 83970; 84443; 85025; 87088

== ENCOUNTER 2021-11-29 05:56 | Emergency (ER) | payer MEDICARE, OTHER ==
--- NOTE | 2021-11-29 06:11 | ED Abdominal Pain ---
General Stated Complaint: LOWER ABDOMINAL PAIN History of Present Illness Date Seen by Provider: Nov 29, 2021 Time Seen by Provider: 06:11 Initial Comments 71-year-old female presents with left lower quadrant pain. She reports that started around 330 this morning. She denies any nausea, vomiting, diarrhea or constipation. She denies any fever. She reports that the pain has been coming and going for a while. That it was worse this morning. Allergies and Home Medications Allergies Coded Allergies: dexamethasone (Verified Allergy, Unknown, 05/17/21) Uncoded Allergies: CONTTRAST DYE (Allergy, Unknown, 05/17/21) Patient Home Medication List Home Medication List Reviewed: Yes ALPRAZolam (Xanax Tablet) 0.25 Mg Tablet, (Reported) Entered as Reported by: KATIE BERGER on 07/10/19108 Amoxicillin/Potassium Clav (Amox Tr-K Clv 875-125 mg Tab) 1 Each Tablet, 1 EACH PO BID Prescribed by: HARJINDER URIBE on 11/29/21 0657 Cephalexin (Cephalexin) 500 Mg Tablet, 500 MG PO TID Prescribed by: JEWEL HUNTER on 10/17/21 2107 Cyclobenzaprine HCl (Cyclobenzaprine HCl) 10 Mg Tablet, 10 MG PO HS PRN for SPASMS Prescribed by: CARO HOLMAN on 05/09/21 1218 Fluoxetine HCl (Fluoxetine HCl) 20 Mg Capsule, (Reported) Entered as Reported by: KATIE BERGER on 07/10/19108 Gabapentin (Gabapentin) 100 Mg Capsule, 100 MG PO Q8H Prescribed by: CARO HOLMAN on 05/09/21 1218 Hydrochlorothiazide (Hydrochlorothiazide) 12.5 Mg Capsule, (Reported) Entered as Reported by: KATIE BERGER on 07/10/19108 Hydrocodone Bit/Acetaminophen (Lortab 5 Mg Tablet) 1 Each Tablet, (Reported) Entered as Reported by: KATIE BERGER on 07/10/19108 Hydrocodone/Acetaminophen (Hydrocodone-Acetamin 5-325 mg) 1 Each Tablet, 1 TAB PO Q4H PRN for PAIN-MODERATE (5-7) Prescribed by: JEWEL HUNTER on 05/07/21 2332 Hydrocodone/Acetaminophen (Hydrocodone-Acetamin 7.5-325) 1 Each Tablet, 1 EACH PO Q6H PRN for PAIN-MODERATE (5-7) Prescribed by: GAGE GONZALES on 05/17/21 1857 Hydrocodone/Acetaminophen (Hydrocodone-Acetamin 5-325 mg) 1 Each Tablet, 1 TAB PO Q4H PRN for PAIN-MODERATE (5-7) Prescribed by: HARJINDER URIBE on 11/29/21 0700 Levothyroxine Sodium (Levothyroxine Sodium) 150 Mcg Tablet, (Reported) Entered as Reported by: KATIE BERGER on 07/10/19108 Lisinopril (Lisinopril) 20 Mg Tablet, (Reported) Entered as Reported by: KATIE BERGER on 07/10/19108 Metformin HCl (Metformin HCl) 500 Mg Tablet, (Reported) Entered as Reported by: KATIE BERGER on 07/10/19108 Metoprolol Succinate (Metoprolol Succinate) 100 Mg Tab.er.24h, (Reported) Entered as Reported by: KATIE BERGER on 07/10/19108 Nabumetone (Nabumetone) 500 Mg Tablet, (Reported) Entered as Reported by: KATIE BERGER on 07/10/19108 Omeprazole (Omeprazole) 20 Mg Capsule.dr, (Reported) Entered as Reported by: KATIE BERGER on 07/10/19108 Ondansetron (Ondansetron Odt) 4 Mg Tab.rapdis, 4 MG PO Q6H Prescribed by: JEWEL HUNTER on 10/17/21 210 Ondansetron (Ondansetron Odt) 4 Mg Tab.rapdis, 4 MG PO Q6H PRN for NAUSEA/VOMITING Prescribed by: HARJINDER URIBE on 11/29/21 0657 Pravastatin Sodium (Pravastatin Sodium) 40 Mg Tablet, (Reported) Entered as Reported by: KATIE BERGER on 07/10/19108 Tramadol HCl (Tramadol HCl) 50 Mg Tablet, 50 MG PO Q8H PRN for PAIN Prescribed by: CARO HOLMAN on 05/09/21 1219 Review of Systems Review of Systems Constitutional: No chills, No fever Cardiovascular: No Symptoms Reported Gastrointestinal: See HPI Genitourinary: See HPI Musculoskeletal: no symptoms reported Skin: no symptoms reported Psychiatric/Neurological: No Symptoms Reported Endocrine: No Symptoms Reported Hematologic/Lymphatic: No Symptoms Reported Past Nxybnit-Exjwnj-Mbwqkn Hx Immunizations Up To Date First/Initial COVID19 Vaccinat: October 2020 Second COVID19 Vaccination Guero: yes Third COVID19 Vaccination Date: October 2020 Seasonal Allergies Seasonal Allergies: No Past Medical History Surgeries: Yes Bladder Surgery, Gallbladder, Thyroidectomy, Tonsillectomy Respiratory: No Cardiac: Yes High Cholesterol, Hypertension Neurological: No Genitourinary: Yes Bladder Infection Gastrointestinal: No Musculoskeletal: No Endocrine: Yes Hypothyroidsim, Diabetes, Non-Insulin dep HEENT: No Cancer: Yes Breast, Thyroid What Type of Treatment Did You: Surgical Intervention Psychosocial: Yes Anxiety, Depression Integumentary: No Blood Disorders: No Adverse Reaction/Blood Tranf: No Family Medical History DVT/PE Physical Exam Vital Signs Vital Signs - First Documented 11/29/21 06:00 Temp 36.3 Pulse 78 Resp 18 B/P (MAP) 186/96 (126) Pulse Ox 95 O2 Delivery Room Air Capillary Refill : Height/Weight/BMI Height: '" Weight: lbs. oz. kg; 33.00 BMI Method: General Appearance: WD/WN, no apparent distress Respiratory: lungs clear Cardiovascular: normal peripheral pulses, regular rate, rhythm Gastrointestinal: soft, tenderness (Mild tenderness left lower abdomen/groin) Extremities: normal range of motion, non-tender Neurologic/Psychiatric: alert, normal mood/affect, oriented x 3 Skin: normal color, warm/dry Progress/Results/Core Measures Results/Orders Lab Results Laboratory Tests Test 11/29/21 06:05 11/29/21 06:08 Range/Units Urine Color YELLOW Urine Clarity CLEAR Urine pH 8.0 5-9 Urine Specific [place] 1.020 1.016-1.022 Urine Protein 1+ H NEGATIVE Urine Glucose (UA) NEGATIVE NEGATIVE Urine Ketones NEGATIVE NEGATIVE Urine Nitrite NEGATIVE NEGATIVE Urine Bilirubin NEGATIVE NEGATIVE Urine Urobilinogen 1.0 < = 1.0 MG/DL Urine Leukocyte Esterase NEGATIVE NEGATIVE Urine RBC (Auto) NEGATIVE NEGATIVE Urine RBC NONE /HPF Urine WBC 0-2 /HPF Urine Squamous Epithelial Cells 2-5 /HPF Urine Crystals NONE /LPF Urine Bacteria FEW H /HPF Urine Casts NONE /LPF Urine Mucus SMALL H /LPF Urine Culture Indicated YES White Blood Count 11.6 H 4.3-11.0 10^3/uL Red Blood Count 4.14 3.80-5.11 10^6/uL Hemoglobin 12.5 11.5-16.0 g/dL Hematocrit 36 35-52 % Mean Corpuscular Volume 87 80-99 fL Mean Corpuscular Hemoglobin 30 25-34 pg Mean Corpuscular Hemoglobin Concent 35 32-36 g/dL Red Cell Distribution Width 13.1 10.0-14.5 % Platelet Count 258 130-400 10^3/uL Mean Platelet Volume 8.7 L 9.0-12.2 fL Immature Granulocyte % (Auto) 0 % Neutrophils (%) (Auto) 79 H 42-75 % Lymphocytes (%) (Auto) 13 12-44 % Monocytes (%) (Auto) 6 0-12 % Eosinophils (%) (Auto) 1 0-10 % Basophils (%) (Auto) 0 0-10 % Neutrophils # (Auto) 9.2 H 1.8-7.8 10^3/uL Lymphocytes # (Auto) 1.5 1.0-4.0 10^3/uL Monocytes # (Auto) 0.7 0.0-1.0 10^3/uL Eosinophils # (Auto) 0.1 0.0-0.3 10^3/uL Basophils # (Auto) 0.1 0.0-0.1 10^3/uL Immature Granulocyte # (Auto) 0.0 0.0-0.1 10^3/uL Sodium Level 140 135-145 MMOL/L Potassium Level 4.1 3.6-5.0 MMOL/L Chloride Level 101 98-107 MMOL/L Carbon Dioxide Level 24 21-32 MMOL/L Anion Gap 15 H 5-14 MMOL/L Blood Urea Nitrogen 12 7-18 MG/DL Creatinine 0.78 0.60-1.30 MG/DL Estimat Glomerular Filtration Rate 82 BUN/Creatinine Ratio 15 Glucose Level 133 H 70-105 MG/DL Calcium Level 8.5 8.5-10.1 MG/DL Corrected Calcium 8.5 8.5-10.1 MG/DL Total Bilirubin 0.7 0.1-1.0 MG/DL Aspartate Amino Transf (AST/SGOT) 17 5-34 U/L Alanine Aminotransferase (ALT/SGPT) 19 0-55 U/L Alkaline Phosphatase 110 40-136 U/L Total Protein 7.0 6.4-8.2 GM/DL Albumin 4.0 3.2-4.5 GM/DL My Orders Orders - URIBE,HARJINDER L DO Cbc With Automated Diff (11/29/21 06:17) Comprehensive Metabolic Panel (11/29/21 06:17) Ua Culture If Indicated (11/29/21 06:17) Ct Abdomen/Pelvis Wo (11/29/21 06:17) Ketorolac Injection (Toradol Injection) (11/29/21 06:17) Ed Iv/Invasive Line Start (11/29/21 06:19) Urine Culture (11/29/21 06:05) Ondansetron Injection (Zofran Injectio (11/29/21 06:45) Ondansetron Injection (Zofran Injectio (11/29/21 06:36) Medications Given in ED Current Medications Medications Dose Ordered Sig/Delfina Route Start Time Stop Time Status Last Admin Dose Admin Ondansetron HCl 4 mg ONCE ONCE IVP 11/29/21 06:45 11/29/21 06:46 DC 11/29/21 06:39 4 MG Vital Signs/I&O 11/29/21 06:00 Temp 36.3 Pulse 78 Resp 18 B/P (MAP) 186/96 (126) Pulse Ox 95 O2 Delivery Room Air Progress Progress Note : Progress Note Patient with mild diverticulitis. We will treat her with Augmentin, Zofran and have her follow-up with her primary care provider. I did discuss with her recommendation of a colonoscopy. Patient stable and discharged home Diagnostic Imaging Diagonstic Imaging: CT Plain Films/CT/US/NM/MRI: abdomen Comments Date of Exam:11/29/21 CT ABDOMEN/PELVIS WO PROCEDURE: CT abdomen and pelvis without contrast. TECHNIQUE: Multiple contiguous axial images were obtained through the abdomen and pelvis without the use of intravenous contrast. Auto Exposure Controls were utilized during the CT exam to meet ALARA standards for radiation dose reduction. INDICATION: Left lower abdominal pain. COMPARISON: CT pelvis without contrast 05/17/2021. FINDINGS: Minimal atelectasis in the lung bases. Cholecystectomy. Small esophageal hiatal hernia. Nonspecific cysts in the left kidney. Short segment bowel wall thickening and inflammatory change about the proximal sigmoid colon where there are several diverticula consistent with acute diverticulitis. Small amount of free fluid in the pelvis. No free intraperitoneal air. No fluid collections. No evidence of bowel obstruction. The liver, pancreas, spleen, adrenals, left kidney, collecting systems, decompressed bladder and appendix are negative on this noncontrast exam. Hysterectomy. Moderate to advanced spondylotic changes in the lower lumbar spine including grade 1 retrolisthesis of L5 on S1 and anterolisthesis of L4 on L5. No acute osseous findings. IMPRESSION: CT findings consistent with acute uncomplicated diverticulitis in the proximal sigmoid colon. Recommend followup with endoscopy when clinically warranted to exclude an underlying mass. Reviewed: Reviewed by Me Departure Impression Primary Impression: Diverticulitis of intestine Qualified Codes: K57.32 - Diverticulitis of large intestine without perforation or abscess without bleeding Disposition: HOME, SELF-CARE Condition: Stable Departure-Patient Inst. Referrals: DAVID ALONSO MD (PCP/Family) Primary Care Physician Patient Instructions: Diverticulitis Add. Discharge Instructions: Follow-up with your primary care provider next week for recheck of your symptoms and to arrange a general surgery consult for a colonoscopy if they feel is warranted Scripts Hydrocodone/Acetaminophen (Hydrocodone-Acetamin 5-325 mg) 1 Each Tablet 1 TAB PO Q4H PRN for PAIN-MODERATE (5-7), #5 TAB Prov: HARJINDER URIBE DO 11/29/21 Amoxicillin/Potassium Clav (Amox Tr-K Clv 875-125 mg Tab) 1 Each Tablet 1 EACH PO BID for 7 Days, #14 TAB Prov: HARJINDER URIBE DO 11/29/21 Ondansetron (Ondansetron Odt) 4 Mg Tab.rapdis 4 MG PO Q6H PRN for NAUSEA/VOMITING, #20 TAB 0 Refills Prov: HARJINDER URIBE DO 11/29/21 HARJINDER URIBE DO Nov 29, 2021 06:11
[2021-11-29] MEDS ORDERED: KETOROLAC 30 MG/ML VIAL IVP STA (06:17)
[2021-11-29 06:25] LABS: BASOPHILS # (AUTO) 0.1 10^3/uL (0.0-0.1); BASOPHILS % (AUTO) 0 % (0-10); EOSINOPHILS # (AUTO) 0.1 10^3/uL (0.0-0.3); EOSINOPHILS % (AUTO) 1 % (0-10); HEMATOCRIT 36 % (35-52); HEMOGLOBIN 12.5 g/dL (11.5-16.0); LYMPHOCYTES # (AUTO) 1.5 10^3/uL (1.0-4.0); LYMPHOCYTES % (AUTO) 13 % (12-44); MEAN CORPUSCULAR HEMOGLOBIN 30 pg (25-34); MEAN CORPUSCULAR HGB CONC 35 g/dL (32-36); MEAN CORPUSCULAR VOLUME 87 fL (80-99); MEAN PLATELET VOLUME 8.7 fL (9.0-12.2); MONOCYTES # (AUTO) 0.7 10^3/uL (0.0-1.0); MONOCYTES % (AUTO) 6 % (0-12); NEUTROPHILS # (AUTO) 9.2 10^3/uL (1.8-7.8); NEUTROPHILS % (AUTO) 79 % (42-75); PLATELET COUNT 258 10^3/uL (130-400); WHITE BLOOD COUNT 11.6 10^3/uL (4.3-11.0)
[2021-11-29 06:27] LABS: BILIRUBIN,URINE NEGATIVE (NEGATIVE); CLARITY,URINE CLEAR; COLOR,URINE YELLOW; GLUCOSE, URINE (UA) NEGATIVE (NEGATIVE); KETONES,URINE NEGATIVE (NEGATIVE); LEUKOCYTE ESTERASE ,URINE NEGATIVE (NEGATIVE); NITRITE,URINE NEGATIVE (NEGATIVE); PROTEIN,URINE 1+ (NEGATIVE)
[2021-11-29 06:34] LABS: BACTERIA,URINE FEW /HPF; WBC,URINE 0-2 /HPF
[2021-11-29] MEDS ORDERED: ONDANSETRON 4 MG/2 ML (SDV) Z0FRAN ONE (06:36)
[2021-11-29 06:43] LABS: POTASSIUM 4.1 MMOL/L (3.6-5.0)
[2021-11-29 06:44] LABS: BILIRUBIN,TOTAL 0.7 MG/DL (0.1-1.0); CALCIUM 8.5 MG/DL (8.5-10.1); CREATININE SERUM 0.78 MG/DL (0.60-1.30)
[2021-11-29] MEDS ORDERED: ONDANSETRON 4 MG/2 ML (SDV) Z0FRAN IVP ONE (06:45)
--- NOTE | 2021-11-29 06:49 | Diagnostic Imaging Report ---
PROCEDURE: CT abdomen and pelvis without contrast. TECHNIQUE: Multiple contiguous axial images were obtained through the abdomen and pelvis without the use of intravenous contrast. Auto Exposure Controls were utilized during the CT exam to meet ALARA standards for radiation dose reduction. INDICATION: Left lower abdominal pain. COMPARISON: CT pelvis without contrast 05/17/2021. FINDINGS: Minimal atelectasis in the lung bases. Cholecystectomy. Small esophageal hiatal hernia. Nonspecific cysts in the left kidney. Short segment bowel wall thickening and inflammatory change about the proximal sigmoid colon where there are several diverticula consistent with acute diverticulitis. Small amount of free fluid in the pelvis. No free intraperitoneal air. No fluid collections. No evidence of bowel obstruction. The liver, pancreas, spleen, adrenals, left kidney, collecting systems, decompressed bladder and appendix are negative on this noncontrast exam. Hysterectomy. Moderate to advanced spondylotic changes in the lower lumbar spine including grade 1 retrolisthesis of L5 on S1 and anterolisthesis of L4 on L5. No acute osseous findings. IMPRESSION: CT findings consistent with acute uncomplicated diverticulitis in the proximal sigmoid colon. Recommend followup with endoscopy when clinically warranted to exclude an underlying mass. Dictated by: Dictated on workstation # [id number]
[2021-11-29] MEDS ORDERED: AMOX1TAB12 PO (06:57)
[2021-11-29] MEDS ORDERED: ONDA4TAB11 PO (06:57)
[2021-11-29] MEDS ORDERED: ACHD5005 PO ×2 (06:58→07:00)
[2021-11-29 07:05] VITALS: BP 149/84
== END 2021-11-29 07:10 | disposition home or self-care (01) ==
LOC: EDUNIT# 05:56 → ER FS 05:59
DX: K57.32 Diverticulitis of large intestine without perforation or abscess without bleeding (principal)
CPT/HCPCS: 36415; 74176; 80053; 81000; 85025; 87077; 87088; 87186

== ENCOUNTER → 2021-12-04 | Outpatient (CLI) | payer MEDICARE, OTHER ==
[~2021-12-04] MED LIST changes: +AMOX1TAB12 PO
[2021-12-04 17:07] LABS: BASOPHILS % (AUTO) 0 % (0-10); EOSINOPHILS # (AUTO) 0.1 10^3/uL (0.0-0.3); EOSINOPHILS % (AUTO) 1 % (0-10); HEMATOCRIT 34 % (35-52); HEMOGLOBIN 12.1 g/dL (11.5-16.0); LYMPHOCYTES # (AUTO) 1.2 10^3/uL (1.0-4.0); LYMPHOCYTES % (AUTO) 12 % (12-44); MEAN CORPUSCULAR HEMOGLOBIN 30 pg (25-34); MEAN CORPUSCULAR HGB CONC 36 g/dL (32-36); MEAN CORPUSCULAR VOLUME 85 fL (80-99); MEAN PLATELET VOLUME 8.7 fL (9.0-12.2); MONOCYTES # (AUTO) 0.7 10^3/uL (0.0-1.0); MONOCYTES % (AUTO) 7 % (0-12); NEUTROPHILS # (AUTO) 7.9 10^3/uL (1.8-7.8); NEUTROPHILS % (AUTO) 80 % (42-75); PLATELET COUNT 257 10^3/uL (130-400); WHITE BLOOD COUNT 9.8 10^3/uL (4.3-11.0)
[2021-12-04 17:33] LABS: ALBUMIN 3.9 GM/DL (3.2-4.5); BILIRUBIN,TOTAL 1.2 MG/DL (0.1-1.0); CALCIUM 8.7 MG/DL (8.5-10.1); CREATININE SERUM 0.77 MG/DL (0.60-1.30); POTASSIUM 3.4 MMOL/L (3.6-5.0); TOTAL PROTEIN 7.1 GM/DL (6.4-8.2)
== END ==
LOC: LAB FS 16:21
PROVIDERS: ATTEND Registered Nurse Emergency
DX: K57.32 Diverticulitis of large intestine without perforation or abscess without bleeding (principal); H81.10 Benign paroxysmal vertigo, unspecified ear
CPT/HCPCS: 36415; 80053; 85025; 86141

== ENCOUNTER → 2022-03-19 | Outpatient (CLI) | payer MEDICARE, OTHER ==
[2022-03-19 15:44] LABS: ALANINE AMINOTRANSFERASE 25 U/L (0-55); ALKALINE PHOSPHATASE 94 U/L (40-136); BILIRUBIN,TOTAL 0.8 MG/DL (0.1-1.0); BUN/CREATININE RATIO 20; CALCIUM 8.8 MG/DL (8.5-10.1); CARBON DIOXIDE 26 MMOL/L (21-32); CHLORIDE 98 MMOL/L (98-107); GFR ESTIMATED 60; GLUCOSE 154 MG/DL (70-105); POTASSIUM 3.8 MMOL/L (3.6-5.0); SODIUM 140 MMOL/L (135-145); TOTAL PROTEIN 7.5 GM/DL (6.4-8.2)
[2022-03-19 15:45] LABS: ALBUMIN 4.6 GM/DL (3.2-4.5)
--- NOTE | 2022-03-19 16:24 | Diagnostic Imaging Report ---
INDICATION: Bilateral knee pain. COMPARISON: None. FINDINGS: Multiple radiographic views of the bilateral knees were obtained. There are advanced osteoarthritic changes, bilaterally. This consists of joint space narrowing with prominent osteophyte formations. There is also mild lateral subluxation of the tibia in respect to the distal femur, bilaterally. Joint spaces are otherwise maintained. Osseous structures are intact. There is no large joint effusion. No unexpected radiopaque foreign body is seen. IMPRESSION: 1. Advanced osteoarthritic changes of both knees. 2. No evidence of acute fracture or dislocation. Dictated by: Dictated on workstation # [id number]
[2022-03-20 15:32] LABS: CHOLESTEROL 232 MG/DL (< 200); HDL CHOLESTEROL 47 MG/DL (40-60); TRIGLYCERIDES 285 MG/DL (<150); VLDL CHOLESTEROL 57 MG/DL (5-40)
== END ==
LOC: LAB FS 15:03
PROVIDERS: ATTEND Family Medicine
DX: M17.0 Bilateral primary osteoarthritis of knee (principal); E11.9 Type 2 diabetes mellitus without complications; E03.9 Hypothyroidism, unspecified
CPT/HCPCS: 36415; 80053; 80061; 82043; 83036; 84443

== ENCOUNTER → 2022-06-21 | Outpatient (CLI) | payer MEDICARE, OTHER ==
[2022-06-21 09:28] LABS: ALBUMIN 4.4 GM/DL (3.2-4.5); BILIRUBIN,TOTAL 0.5 MG/DL (0.1-1.0); CALCIUM 8.6 MG/DL (8.5-10.1); CREATININE SERUM 1.16 MG/DL (0.60-1.30); POTASSIUM 4.5 MMOL/L (3.6-5.0); TOTAL PROTEIN 7.2 GM/DL (6.4-8.2)
== END ==
LOC: LAB FS 08:17
PROVIDERS: ATTEND Family Medicine
DX: E03.9 Hypothyroidism, unspecified (principal); E11.9 Type 2 diabetes mellitus without complications
CPT/HCPCS: 36415; 80053; 83036; 84443